=== PATIENT | female | born 1965 | race Caucasian/White ===

== ENCOUNTER 2016-09-12 18:40 | Inpatient (IN) ==
[2016-09-12] MEDS ORDERED: ETOMIDATE 20 MG/10 ML VIAL IV ONE (19:08)
[2016-09-12] MEDS ORDERED: VECURONIUM 10 MG VIAL IV ONE ×2 (19:08→21:12)
[2016-09-12] MEDS ORDERED: THIAMINE INJ 100 MG, FOLIC ACID INJ 1 MG, MAGNESIUM SULF INJ 2 GM, MULTIVITAMIN INJ 10 ... IV ONE (19:10)
[2016-09-12] MEDS ORDERED: SODIUM CHLORIDE 0.9% 500 ML IV STA (19:10)
[2016-09-12] MEDS ORDERED: FUROSEMIDE 40 MG/4 ML VIAL IV STA (19:14)
[2016-09-12] MEDS ORDERED: CLINDAMYCIN INJ 900 MG in PREMIX 1 EACH IV STA (19:14)
[2016-09-12] MEDS ORDERED: methylPREDNISolone SOD SUC 125 MG/2 ML VIAL IV STA (19:14)
[2016-09-12] MEDS ORDERED: PROPOFOL 1,000 MG/100 ML BOTTLE IV ONE (19:17)
--- NOTE | 2016-09-12 19:26 | XRay Report ---
XR chest 1V portable Indication: Altered mental status Comparison: None Technique: Single frontal view of the chest Findings: Heart size appears within normal limits. Endotracheal tube tip noted approximately 3 cm above the laure. No focal consolidation, pleural effusion, or pneumothorax. Displaced left mid/distal clavicular fracture. IMPRESSION: As above. PROCEDURE INTERPRETED AT [facility] DEPARTMENT OF RADIOLOGY Final Report Signed by: Dr Donal Strange
[2016-09-12 19:27] LABS: ABG Base Excess -2.6 MMOL/L (-2.5-2.5); ABG Oxygen Saturation 96.9 % (95-100); ABG PCO2 48.4 MM HG (35-48); ABG PH 7.313 (7.35-7.45); ABG PO2 106.7 MM HG (80-95); ABG TCO2 25.5 MMOL/L (23-27)
[2016-09-12 19:45] LABS: Basophils % 0.5 % (0.0-0.8); Eosinophils % 0.1 % (0.00-10.9); Hematocrit 40.7 VOL% (35.7-47.0); Hemoglobin 13.8 GM/DL (12.0-16.0); Immature Granulocytes % 1.3 %; Immature Granulocytes Absolute 0.11 #; Lymphocytes # 0.7 10*3/uL (1.4-4.0); Lymphocytes % 8.4 % (21.3-54.2); Mean Corpuscular HGB Conc 33.9 GM/DL (32-36); Mean Corpuscular Hemoglobin 33 PG (27-34); Mean Corpuscular Volume 97.8 FL (87-102); Monocytes # 0.3 10*3/uL (0.11-0.8); Monocytes % 3.6 % (1.7-12.7); Neutrophils # 7.6 10*3/uL (1.4-7.4); Neutrophils % 86.1 % (38.7-73.9); Platelet Count 162 T/CUMM (130-400); Red Blood Count 4.16 MC/CUMM (3.8-5.5); Red Cell Distribution Width 12.8 % (9.3-17.3); White Blood Count 8.8 T/CUMM (4-12)
[2016-09-12 19:49] LABS: Apearance,Urine Slightly Hazy (Clear); Bilirubin,Urine Negative (Negative); Blood, Urine Negative (Negative); Glucose,Urine (UA) Negative (Negative); Ketones,Urine Negative (Negative); Nitrite,Urine Negative (Negative); Protein,Urine Negative; RBC,Urine 1 /HPF (0-4); Squamous Epithelial Cell,Urine Occasional /HPF (0-10); Urine Color Yellow (Yellow); Urine Specific Gravity 1.005 (1.001-1.035); Urine Urobilinogen < 2.0 EU/DL (0.2-1.0); WBC,Urine 1 /HPF (0-6)
[2016-09-12 19:55] LABS: PT Patient Result 10.3 SECS
--- NOTE | 2016-09-12 19:55 | CT Report ---
CT head/brain wo con Indication: Mental status changes Comparison: None Technique: Multiple axial tomographic images of the brain were obtained without the use of intravenous contrast. Findings: Midline structures are nondisplaced. There is no acute intracranial hemorrhage or evidence of hydrocephalus. Mild to moderate global volume loss present. Periventricular and subcortical hypoattenuation noted which is nonspecific but consistent with chronic microvascular ischemic change. Paranasal sinuses and mastoid air cells are clear. IMPRESSION: No acute intracranial abnormality demonstrated. Probable chronic microvascular ischemic change and volume loss. PROCEDURE INTERPRETED AT [facility] DEPARTMENT OF RADIOLOGY Final Report Signed by: Dr Donal Strange
[2016-09-12 19:59] LABS: Barbiturates Screen,Urine Negative (Negative); Benzodiazepines Screen,Urine Negative (Negative); Cannabinoid Screen,Urine Negative (Negative); Opiate Screen,Urine Negative (Negative); Phencyclidine Screen,Urine Negative (Negative)
[2016-09-12 20:11] LABS: Alanine Aminotransferase 30 U/L (13-56); Albumin 3.8 G/DL (3.4-5.0); Alkaline Phosphatase 81 U/L (45-117); Aspartate Amino Transferase 40 U/L (0-37); Bilirubin,Total < 0.39 MG/DL (0.2-1.0); Blood Urea Nitrogen 9 MG/DL (7-18); Calcium 8.2 MG/DL (8.5-10.1); Glucose 123 MG/DL (74-106); Osmolality,Calculated 285.8 MOS/KG (273-304); Potassium 2.8 MMOL/L (3.5-5.1); Sodium 144 MMOL/L (136-145); Total Protein 6.5 G/DL (6.4-8.3); Troponin I Only < 0.015 NG/ML (0.00-0.045)
[2016-09-12 20:14] LABS: Ammonia 35 UMOL/L (11-32)
[2016-09-12] MEDS ORDERED: FUROSEMIDE 40 MG/4 ML VIAL ONE (20:26)
[2016-09-12] MEDS ORDERED: CLINDAMYCIN INJ 50 ML IV ONE (20:26)
[2016-09-12] MEDS ORDERED: methylPREDNISolone SOD SUC 125 MG/2 ML VIAL ONE (20:27)
[2016-09-12] MEDS ORDERED: POTASSIUM CHLORIDE RIDER 20 MEQ in PREMIX 1 EACH IV STA (20:31)
[2016-09-12 20:47] LABS: Sedimentation Rate-Westergren 8 MM/HR (0-20)
--- NOTE | 2016-09-12 20:56 | Emergency Department Note ---
Yosef Navarro Brittany, am scribing for, and in the presence of, Amol Torres MD 19:23. Brian Navarro Charles R, MD, personally performed the services described in this documentation, ascribed by Ashwini Navas in my presence, and it is both accurate and complete 056 . Arrival - Arrival Chief Complaint: Overdose Stated Complaint: overdose ED Nursing Triage Note: Patient arrived via ems with unresponsiveness. Patient on NRB at 100%. O2 sats = 88%. Arousable to verbal stimuli. Lethargy noted.unresponsive prior to arrival. last known well time was at noon. suspected overdose on benadryl and vodka.Patient with known ETOH abuse. Mode of Arrival: Stretcher Limitations: No Limitations, Altered Mental Status Source: Family, RN Notes Reviewed - History of Present Illness HPI Narrative: Patient is a 51 y/o white female presenting to the ED by EMS for further evaluation of overdose. Patient's family reports that she and other family attempted to arouse patient to answer a phone call, but could not get a response from her. She then states she attempted a sternal rub on patient, with no response either. She then notes that upon removing the covers she found a bottle of Smirnoff vodka lying beside the patient that was almost empty with some pink infused residue in the bottle. She reports that patient has been taking some Benadryl as of current for her allergies and believes that patient may have infused an unknown amount of the Benadryl with the vodka. She notes that patient's last known well time was around noon today. Family is unsure if patient has had any suicidal ideations. Family reports that patient has a well known history of ETOH abuse, mentioning that patient in the past has been instructed to follow up about a suspicious area on her liver, but never did. EMS notes that en route to the ED, patient vomited what appeared to be pink colored emesis which is consistent with the color of Benadryl tablets. EMS notes that patient was given 0.8 and 1.2 of Narcan en route, with no response. EMS believes that patient may have aspirated. In room patient is unresponsive and has a GCS of 6. Patient was intubated, leading to an increase in sats. She also had an NG tube placed in room as well and there was about 150 mL of pink colored gastric contents consistent with intake of Benadryl and ETOH today. No further history obtained. Allergies/Adverse Reactions: Allergies Allergy/AdvReac Type Severity Reaction Status Date / Time Unable to Obtain Allergy Unverified 09/12/16 20:20 Review of System - Review of System ROS unobtainable: due to mental status Medical,Surgical,& Family Hx - Social History Smoking Status: Unknown if ever smoked Exam Vital Signs: Vital Signs Temperature 97.7 F 09/12/16 18:41 Pulse Rate 111 H 09/12/16 18:41 Respiratory Rate 25 H 09/12/16 18:41 Blood Pressure 123/100 09/12/16 18:41 O2 Sat by Pulse Oximetry 88 L 09/12/16 18:41 - General General appearance: obtunded (patient is unresponsive with a GCS of 6) - Head Head exam: Present: atraumatic, normocephalic, normal inspection - Eye Eye exam: Present: PERRL (4 mm pupils, sluggish response to light), EOMI. Absent: normal appearance (4 mm pupils) - ENT ENT exam: Present: normal exam, normal oropharynx - Neck Neck exam: Present: normal inspection - Chest Chest inspection: Present: normal inspection - Respiratory Respiratory exam: Absent: normal lung sounds bilaterally ("gunky" breath sounds bilaterally per ER Physician) - Cardiovascular Cardiovascular exam: Present: normal rhythm, tachycardia, normal heart sounds. Absent: regular rate - Abdominal Exam Abdominal exam: Present: soft, normal bowel sounds. Absent: distention - Extremities Exam Extremities exam: Present: normal inspection - Back Exam Back exam: Present: normal inspection - Neurological Exam Neurological exam: Absent: alert (patient is unresponsive with a GCS of 6), oriented X3 - Skin Skin exam: Present: warm, dry Course - Consultations Consultation #1: Hospitalist will admit patient Time: 20:55 Procedures - Intubation Time out performed: Yes sedative: Etomidate Mg Given: 20 paralytic: Vecuronium Mg Given: 10 Laryngoscope: fiber optic video scope Assist Device Used: fiber optic device ET Tube Size: 7.5 ET Tube Uncuffed: No Tube Secured Depth (cm): 21 (and a half) Tube Secured Location: lips Tube Placement Confirmation: visualized tube passing through cords, equal breath sounds bilaterally, confirmation detector color change Patient Tolerated Procedure: well, no complications Intubation Complications: none (successfully performed on the first attempt) Results - Labs CBC & BMP: 09/12/16 19:22 09/12/16 19:22 Lab Results: I have reviewed the patients labs Labs: Laboratory Tests 09/12/16 19:19 ABG pH 7.313 L ABG pCO2 48.4 H ABG pO2 106.7 H ABG HCO3 24.0 ABG Total CO2 25.5 ABG O2 Saturation 96.9 ABG Base Excess -2.6 L Laboratory Tests 09/12/16 09/12/16 09/12/16 19:22 19:22 19:22 WBC 8.8 RBC 4.16 Hgb 13.8 Hct 40.7 MCV 97.8 MCH 33 MCHC 33.9 RDW 12.8 Plt Count 162 MPV 10.0 Neut % (Auto) 86.1 H Lymph % (Auto) 8.4 L Harvey % (Auto) 3.6 Eos % (Auto) 0.1 Baso % (Auto) 0.5 Neut # (Auto) 7.6 H Lymph # (Auto) 0.7 L Harvey # (Auto) 0.3 Eos # (Auto) 0.0 Baso # (Auto) 0.0 Immature Gran % 1.3 Nucleated RBC % 0.0 Immature Gran # 0.11 Nucleated RBCs # 0.00 INR 1.0 PT Patient/Control Mix 10.3 Sodium Potassium Chloride Carbon Dioxide Anion Gap BUN Creatinine GFR Calculation BUN/Creatinine Ratio Glucose Calculated Osmolality Calcium Magnesium Total Bilirubin AST ALT Alkaline Phosphatase Ammonia Total Creatine Kinase CK-MB (CK-2) Troponin I B-Natriuretic Peptide Total Protein Albumin Globulin Albumin/Globulin Ratio Prolactin Urine Color Yellow Urine Appearance Slightly hazy Urine pH 6.0 Ur Specific Cavalier 1.005 Urine Protein Negative Urine Glucose (UA) Negative Urine Ketones Negative Urine Blood Negative Urine Nitrate Negative Urine Bilirubin Negative Urine Urobilinogen < 2.0 H Urine Leukocytes Negative Urine RBC 1 Urine WBC 1 Ur Squamous Epith Cells Occasional Urine Opiates Screen Acetaminophen Ur Barbiturates Screen Ur Phencyclidine Scrn U Amphetamine/Methamph U Benzodiazepines Scrn U Cocaine Metab Screen U Cannabinoids Screen Serum Alcohol 09/12/16 09/12/16 09/12/16 19:22 19:22 19:22 WBC RBC Hgb Hct MCV MCH MCHC RDW Plt Count MPV Neut % (Auto) Lymph % (Auto) Harvey % (Auto) Eos % (Auto) Baso % (Auto) Neut # (Auto) Lymph # (Auto) Harvey # (Auto) Eos # (Auto) Baso # (Auto) Immature Gran % Nucleated RBC % Immature Gran # Nucleated RBCs # INR PT Patient/Control Mix Sodium 144 Potassium 2.8 L Chloride 103 Carbon Dioxide 23 Anion Gap 20.8 H BUN 9 Creatinine 0.50 L GFR Calculation 101 BUN/Creatinine Ratio 18.00 Glucose 123 H Calculated Osmolality 285.8 Calcium 8.2 L Magnesium 2.0 Total Bilirubin < 0.39 AST 40 H ALT 30 Alkaline Phosphatase 81 Ammonia 35 H Total Creatine Kinase 80 CK-MB (CK-2) < 1.0 Troponin I < 0.015 B-Natriuretic Peptide Total Protein 6.5 Albumin 3.8 Globulin 2.7 Albumin/Globulin Ratio 1.4 Prolactin 5.7 Urine Color Urine Appearance Urine pH Ur Specific Cavalier Urine Protein Urine Glucose (UA) Urine Ketones Urine Blood Urine Nitrate Urine Bilirubin Urine Urobilinogen Urine Leukocytes Urine RBC Urine WBC Ur Squamous Epith Cells Urine Opiates Screen Acetaminophen < 2.0 L Ur Barbiturates Screen Ur Phencyclidine Scrn U Amphetamine/Methamph U Benzodiazepines Scrn U Cocaine Metab Screen U Cannabinoids Screen Serum Alcohol 188 09/12/16 09/12/16 19:22 19:23 WBC RBC Hgb Hct MCV MCH MCHC RDW Plt Count MPV Neut % (Auto) Lymph % (Auto) Harvey % (Auto) Eos % (Auto) Baso % (Auto) Neut # (Auto) Lymph # (Auto) Harvey # (Auto) Eos # (Auto) Baso # (Auto) Immature Gran % Nucleated RBC % Immature Gran # Nucleated RBCs # INR PT Patient/Control Mix Sodium Potassium Chloride Carbon Dioxide Anion Gap BUN Creatinine GFR Calculation BUN/Creatinine Ratio Glucose Calculated Osmolality Calcium Magnesium Total Bilirubin AST ALT Alkaline Phosphatase Ammonia Total Creatine Kinase CK-MB (CK-2) Troponin I B-Natriuretic Peptide 17 Total Protein Albumin Globulin Albumin/Globulin Ratio Prolactin Urine Color Urine Appearance Urine pH Ur Specific Cavalier Urine Protein Urine Glucose (UA) Urine Ketones Urine Blood Urine Nitrate Urine Bilirubin Urine Urobilinogen Urine Leukocytes Urine RBC Urine WBC Ur Squamous Epith Cells Urine Opiates Screen Negative Acetaminophen Ur Barbiturates Screen Negative Ur Phencyclidine Scrn Negative U Amphetamine/Methamph Negative U Benzodiazepines Scrn Negative U Cocaine Metab Screen Negative U Cannabinoids Screen Negative Serum Alcohol - Diagnostic Findings Procedure: Chest x-ray: report reviewed by me (Heart size appears within normal limits. Endotracheal tube tip noted approximately 3 cm above the laure. No focal consolidation, pleural effusion, or pneumothorax. Displaced left mid/ distal clavicular fracture.), CT: report reviewed by me (CT head: No acute intracranial abnormality is demonstrated. Probable chronic microvascular ischemic change and volume loss.) Critical Care Time Critical Care Time: Yes Total Critical Care Time: 60 Disposition Clinical Impression: Drug overdose, Acute respiratory failure, Acute alcohol intoxication Case discussed with: patient, patient's family Disposition: Still a Patient Condition: Guarded Time of Disposition: 20:56
[2016-09-12] MEDS ORDERED: POTASSIUM CHLORIDE RIDER IV SCH (21:00)
[2016-09-12] MEDS ORDERED: VECURONIUM 10 MG VIAL IV STA (21:26)
[2016-09-12] MEDS ORDERED: SODIUM CHLOR 0.9% KCL 20 MEQ 20 MEQ/1,000 ML BAG IV ONE (21:33)
--- NOTE | 2016-09-12 21:43 | Hospitalist History & Physical ---
Assessment and Plan - Time spent with patient Time spent with patient: Greater than 30 minutes (1) Drug overdose Status: Acute Assessment and plan: Patient is unable to provide any history. The history is taken from the emergency room physician and the account of the family members and EMS. The pink colored fluid is consistent with Benadryl and the bottle of alcohol and elevated alcohol level suggest alcohol intoxication. There is no history of prior suicidal behavior or attempts. Continue to monitor in the intensive care unit with ventilatory support and supportive care. Current Visit: Yes Qualifiers: Encounter type: initial encounter Injury intent: undetermined intent Qualified Code(s): T50.904A - Poisoning by unspecified drugs, medicaments and biological substances, undetermined, initial encounter (2) Acute respiratory failure Status: Acute Assessment and plan: Acute respiratory failure related to toxic ingestion and overdose of Benadryl with alcohol. Causing respiratory depression. GCS of 6. Current Visit: Yes Qualifiers: Respiratory failure complication: unspecified whether with hypoxia or hypercapnia Qualified Code(s): J96.00 - Acute respiratory failure, unspecified whether with hypoxia or hypercapnia (3) Acute alcoholic intoxication Status: Acute Assessment and plan: Patient with a history of chronic alcohol use. Alcohol level 188. Found to have ingested a large amount of alcohol and possibly Benadryl. Currently sedated with diprivan. Monitor for delirium tremens over the next 48-72 hours. Current Visit: Yes Qualifiers: Complication of substance-induced condition: with unspecified complication Qualified Code(s): F10.129 - Alcohol abuse with intoxication, unspecified (4) Hypokalemia Status: Acute Assessment and plan: Oral and IV replacement ordered. Current Visit: Yes History of Present Illness Chief complaint: unresponsive History of present illness: Ms. Evangelista is a 51 year old female that presented to the ED by EMS for further evaluation of overdose. Patient's family reports that she and other family attempted to arouse patient to answer a phone call, but could not get a response from her. She then states she attempted a sternal rub on patient, with no response either. Upon removing the covers, she found a bottle of Smirnoff vodka lying beside the patient that was almost empty with some pink infused residue in the bottle. She reports that patient has been taking some Benadryl as of current for her allergies and believes that patient may have infused an unknown amount of the Benadryl with the vodka. She notes that patient's last known well time was around noon today. Family is unsure if patient has had any suicidal ideation. Family reports that patient has a well known history of ETOH abuse, mentioning that patient in the past has been instructed to follow up about a suspicious area on her liver, but never did. EMS notes that en route to the ED, patient vomited what appeared to be pink colored emesis which is consistent with the color of Benadryl tablets. EMS notes that patient was given 0.8 and 1.2 of Narcan en route, with no response. EMS believes that patient may have aspirated. In room patient is unresponsive and has a GCS of 6. Patient was intubated, leading to an increase in sats. She also had an NG tube placed in room as well and there was about 150 mL of pink colored gastric contents consistent with intake of Benadryl and ETOH today. No further history obtained. I arrived in the emergency department -room 4 - to find the patient intubated and sedated and unable to provide any history. Allergies Allergy/AdvReac Type Severity Reaction Status Date / Time Unable to Obtain Allergy Unverified 09/12/16 20:20 Medical,Surgical,& Family Hx - Surgical History Additional Surgical History: unable to obtain due to intubation and sedation. - Family History Additional Family History: unobtainable due to intubation and sedation. - Social History Smoking Status: Unknown if ever smoked Frequency of Alcohol Use: Frequently Type of Drug Use: Unknown Marital Status: Unknown Functional capacity: independent ambulation ROS unobtainable: due to endotracheal tube, due to mental status, due to encephalopathy Exam - Constitutional Vitals: Heart rate 94 blood pressure 124/90 respirations 14 O2 sat 98% Temperature 97.9 Exam: Constitutional System: No distress. No tremulousness. Sedated with diprivan. Head: Normocephalic, atraumatic. Ears, Nose and Throat System: No pain or tenderness. No epistaxis or discharge. Endotracheal tube in place. Eyes System: Pupils equal, round, and reactive. Extraocular muscles intact. Neck: Supple, without adenopathy, No jugular venous distention. No thyromegaly, neck mass, or prior surgery apparent. Respiratory System: Chest clear to auscultation. Cardiovascular System: Heart with regular rate and rhythm. No murmur. GI System: Abdomen soft, nontender. Normo active bowel sounds present. Musculoskeletal System: limbs with no pedal edema. Full distal pulses. Neurological System: Unable to assess secondary to intubation and sedation. Psychiatric System: Unable to assess secondary to intubation and sedation. Results - Labs CBC & BMP: 09/12/16 19:22 09/12/16 19:22 Lab Results: I have reviewed the past 24 hour labs - EKG EKG results: sinus rhythm EKG shows: tachycardia - Diagnostic Findings Procedure: Chest x-ray: image reviewed by me, report reviewed by me, CT: image reviewed by me, report reviewed by me
[2016-09-12] MEDS: PROPOFOL 1,000 MG/100 ML BOTTLE IV SCH (21:47)
[2016-09-12] MEDS ORDERED: SODIUM CHLOR 0.9% KCL 20 MEQ 20 MEQ/1,000 ML BAG IV SCH (22:00)
[2016-09-12] MEDS: SODIUM CHLORIDE 0.9% 1,000 ML IV SCH (23:09)
[2016-09-12] MEDS: POTASSIUM CHLORIDE RIDER 10 MEQ in PREMIX 1 EACH IV SCH ×2 (23:39→23:42)
[2016-09-12] MEDS: ENOXAPARIN 40 MG/0.4 ML SYRINGE SUBCUT SCH (23:39)
[2016-09-12] MEDS: PANTOPRAZOLE 40 MG VIAL IV SCH (23:43)
[2016-09-13] MEDS: PROPOFOL 1,000 MG/100 ML BOTTLE IV SCH ×7 (00:47→23:50)
[2016-09-13 03:19] LABS: ABG Base Excess -4.5 MMOL/L (-2.5-2.5); ABG HCO3 20.7 MMOL/L (20-26); ABG Oxygen Saturation 99.5 % (95-100); ABG PCO2 33.9 MM HG (35-48); ABG PH 7.376 (7.35-7.45); ABG TCO2 17.6 MMOL/L (23-27); Allen Test Positive; Pt O2 Delivery Device Ventilator
[2016-09-13 05:54] LABS: Basophils % 0.1 % (0.0-0.8); Hematocrit 40.3 VOL% (35.7-47.0); Hemoglobin 13.1 GM/DL (12.0-16.0); Immature Granulocytes % 0.8 %; Immature Granulocytes Absolute 0.12 #; Lymphocytes # 0.8 10*3/uL (1.4-4.0); Lymphocytes % 5.2 % (21.3-54.2); Mean Corpuscular HGB Conc 32.5 GM/DL (32-36); Mean Corpuscular Hemoglobin 33 PG (27-34); Mean Corpuscular Volume 102.3 FL (87-102); Mean Platelet Volume 10.1 FL (9.6-12.0); Monocytes # 0.9 10*3/uL (0.11-0.8); Monocytes % 6.5 % (1.7-12.7); Neutrophils # 12.6 10*3/uL (1.4-7.4); Neutrophils % 87.4 % (38.7-73.9); Platelet Count 150 T/CUMM (130-400); Red Blood Count 3.94 MC/CUMM (3.8-5.5); Red Cell Distribution Width 12.9 % (9.3-17.3); White Blood Count 14.4 T/CUMM (4-12)
[2016-09-13 06:26] LABS: Magnesium 1.9 MG/DL (1.8-2.4)
[2016-09-13] MEDS: SODIUM CHLORIDE 0.9% 1,000 ML IV SCH (06:40)
--- NOTE | 2016-09-13 06:42 | XRay Report ---
Portable chest Date: 09/13/2016 Clinical history: Intubation Comparison: 09/12/2016 Technique: Portable AP sitting chest Findings: The heart remains normal in size. The endotracheal tube is stable in position at the level of the clavicles. Progressive parenchymal findings at the left lung base with small left pleural effusion. Stable mediastinum. Displaced mid left clavicular fracture. Impression: Progressive atelectasis/infiltration at left lung base with small left pleural effusion. No definite pneumothorax is identified with displaced midclavicular fracture. The endotracheal tube remains in satisfactory position. PROCEDURE INTERPRETED AT [facility] DEPARTMENT OF RADIOLOGY Final Report Signed by: Dr. Ashli Gardiner
[2016-09-13 07:44] LABS: Alanine Aminotransferase 22 U/L (13-56); Albumin 3.2 G/DL (3.4-5.0); Alkaline Phosphatase 62 U/L (45-117); Aspartate Amino Transferase 29 U/L (0-37); Bilirubin,Total < 0.39 MG/DL (0.2-1.0); Blood Urea Nitrogen 7 MG/DL (7-18); Calcium 7.1 MG/DL (8.5-10.1); Glucose 127 MG/DL (74-106); Osmolality,Calculated 293.3 MOS/KG (273-304); Potassium 2.9 MMOL/L (3.5-5.1); Sodium 148 MMOL/L (136-145); Total Protein 5.4 G/DL (6.4-8.3)
--- NOTE | 2016-09-13 08:21 | EKG Report ---
Stationary ECG Study [facility] Test Date: 09/12/2016 11:28:27 PM Pat Name: BRODERICK LLOYD Department: Room: 119 Gender: F Purchasing Supervisor: MERVAT : 1965 Requested by: Amol Hawkins Order Number: [id number] Reading MD: SUSAN ESPINOSA Intervals [place] Rate: 91 P: 76 AK: 134 QRS: 58 QRSD: 85 T: 69 QT: 332 QTc: 380 Interpretive Statements SINUS RHYTHM ANTEROSEPTAL MYOCARDIAL INFARCTION, OF INDETERMINATE AGE Electronically Signed On 09-14-16 20:41:29 CDT by SUSAN ESPINOSA [email or web address]
[2016-09-13] MEDS ORDERED: THIAMINE 100 MG TABLET PO SCH (09:00)
[2016-09-13] MEDS ORDERED: FOLIC ACID 1 MG TABLET PO SCH (09:00)
[2016-09-13] MEDS ORDERED: MULTIVITAMIN LIQUID (CENTRUM) 60 ML BOTTLE PO SCH (09:00)
--- NOTE | 2016-09-13 09:07 | Hospitalist Progress Note ---
Assessment and Plan (1) Drug overdose Status: Acute Assessment and plan: Patient is unable to provide any history. The history is taken from the emergency room physician and the account of the family members and EMS. The pink colored fluid is consistent with Benadryl and the bottle of alcohol and elevated alcohol level suggest alcohol intoxication. There is no history of prior suicidal behavior or attempts. UDs was negative -continue respiratory support -Pulm to assist with weaning parameters. Current Visit: Yes Qualifiers: Encounter type: initial encounter Injury intent: undetermined intent Qualified Code(s): T50.904A - Poisoning by unspecified drugs, medicaments and biological substances, undetermined, initial encounter (2) Acute respiratory failure Status: Acute Assessment and plan: Acute respiratory failure related to toxic ingestion and overdose of Benadryl with alcohol. Causing respiratory depression. CXR also showed progressive atelectasis/ infiltration at left lung base with small left pleural effusion. Plan -IV Zosyn -SC,BC -Pulm consult Current Visit: Yes Qualifiers: Respiratory failure complication: unspecified whether with hypoxia or hypercapnia Qualified Code(s): J96.00 - Acute respiratory failure, unspecified whether with hypoxia or hypercapnia (3) Acute alcoholic intoxication Status: Acute Assessment and plan: Patient is on sedation. Will start banana bag,continue with PPIs. Consider Rehab vs psych eval once patient is extubated Current Visit: Yes Qualifiers: Complication of substance-induced condition: with unspecified complication Qualified Code(s): F10.129 - Alcohol abuse with intoxication, unspecified (4) Hypokalemia Status: Acute Assessment and plan: we will continue to replete, bmp in am Current Visit: Yes (5) Pneumonia Status: Acute Assessment and plan: CXR showed progressive atelectasis/ infiltration at left lung base with small left pleural effusion. Plan -will start IV Zosyn, follow cultures. Current Visit: Yes Hospitalist: Subjective Interval history: Patient was seen this am, sedated and intubated. Her CXR showed progressive atelectasis/ infiltration at left lung base with small left pleural effusion. Exam - Constitutional Vitals: Period Temp Pulse Resp BP Sys/Briones Pulse Ox Last 24 Hr 97.2 F-97.4 F 81-97 12-19 85-194/65-127 97-100 General appearance: no acute distress, other (intubated and sedated) - Respiratory Respiratory exam: Present: clear to auscultation bilaterally - Cardiovascular Cardiovascular exam: Present: regular rate and rhythm - GI/Abdominal GI/Abdominal exam: Present: normal bowel sounds - Extremities Exam Extremities exam: Present: normal inspection - Back Exam Back exam: Present: other (sedated) Results - Labs CBC & BMP: 09/13/16 05:09 09/13/16 06:48 Lab Results: I have reviewed the past 24 hour labs Quality Measures - Stroke Symptom Onset Unknown: No
[2016-09-13] MEDS ORDERED: THIAMINE INJ 100 MG, FOLIC ACID INJ 1 MG, MULTIVITAMIN INJ 10 ML in SODIUM CHLORIDE 0.9... IV SCH (09:30)
[2016-09-13] MEDS: PIPERACILLIN/TAZOBACTAM 3,375 MG in SODIUM CHLORIDE 0.9% 100 ML IV SCH ×2 (09:30→18:07)
[2016-09-13] MEDS ORDERED: SODIUM CHLOR 0.9% KCL 20 MEQ 20 MEQ/1,000 ML BAG IV SCH (09:30)
[2016-09-13] MEDS ORDERED: LEVOFLOXACIN INJ 750 MG in PREMIX 1 EACH IV SCH (09:30)
[2016-09-13] MEDS: PANTOPRAZOLE 40 MG VIAL IV SCH ×2 (21:30→21:59)
[2016-09-13] MEDS: ENOXAPARIN 40 MG/0.4 ML SYRINGE SUBCUT SCH (21:59)
[2016-09-14] MEDS: PIPERACILLIN/TAZOBACTAM 3,375 MG in SODIUM CHLORIDE 0.9% 100 ML IV SCH ×3 (02:30→17:49)
[2016-09-14] MEDS: PROPOFOL 1,000 MG/100 ML BOTTLE IV SCH ×6 (03:50→23:15)
[2016-09-14 05:36] LABS: Calcium 7.8 MG/DL (8.5-10.1); Osmolality,Calculated 291.3 MOS/KG (273-304); Potassium 4.4 MMOL/L (3.5-5.1)
[2016-09-14 06:31] LABS: Basophils % 0.4 % (0.0-0.8); Eosinophils # 0.1 10*3/uL (0.0-0.87); Hematocrit 30.6 VOL% (35.7-47.0); Immature Granulocytes % 0.7 %; Immature Granulocytes Absolute 0.05 #; Lymphocytes # 1.4 10*3/uL (1.4-4.0); Lymphocytes % 20.8 % (21.3-54.2); Mean Corpuscular Hemoglobin 34 PG (27-34); Mean Corpuscular Volume 101.7 FL (87-102); Mean Platelet Volume 10.2 FL (9.6-12.0); Monocytes # 0.8 10*3/uL (0.11-0.8); Monocytes % 11.4 % (1.7-12.7); Neutrophils # 4.5 10*3/uL (1.4-7.4); Neutrophils % 65.7 % (38.7-73.9); Platelet Count 137 T/CUMM (130-400); Red Cell Distribution Width 13.3 % (9.3-17.3)
[2016-09-14 06:34] LABS: White Blood Count 6.9 T/CUMM (4-12)
[2016-09-14 06:35] LABS: Hemoglobin 10.1 GM/DL (12.0-16.0); Red Blood Count 3.01 MC/CUMM (3.8-5.5)
[2016-09-14 08:14] LABS: Allen Test Positive; Pt O2 Delivery Device Ventilator
[2016-09-14 08:15] LABS: ABG HCO3 23.6 MMOL/L (20-26); ABG Oxygen Saturation 99.7 % (95-100); ABG PCO2 32.1 MM HG (35-48); ABG PH 7.449 (7.35-7.45); ABG TCO2 19.9 MMOL/L (23-27)
--- NOTE | 2016-09-14 08:33 | Hospitalist Progress Note ---
Assessment and Plan (1) Drug overdose Status: Acute Assessment and plan: Patient is unable to provide any history. The history is taken from the emergency room physician and the account of the family members and EMS. The pink colored fluid is consistent with Benadryl and the bottle of alcohol and elevated alcohol level suggest alcohol intoxication. There is no history of prior suicidal behavior or attempts. UDs was negative Plan -Continue vent support, ABGs -will repeat a CXR -Pulm consult -consider feeding via NG tube Current Visit: Yes Qualifiers: Encounter type: initial encounter Injury intent: undetermined intent Qualified Code(s): T50.904A - Poisoning by unspecified drugs, medicaments and biological substances, undetermined, initial encounter (2) Acute respiratory failure Status: Acute Assessment and plan: Acute respiratory failure related to toxic ingestion and overdose of Benadryl with alcohol. Causing respiratory depression. CXR also showed progressive atelectasis/ infiltration at left lung base with small left pleural effusion. Patient is sating 99% on Fio2 of 50% Plan -continue IV Zosyn and vent support -BC - negative so far -repeat CXR -Follow Pulm consult -IV lasix 40mg x1 Current Visit: Yes Qualifiers: Respiratory failure complication: unspecified whether with hypoxia or hypercapnia Qualified Code(s): J96.00 - Acute respiratory failure, unspecified whether with hypoxia or hypercapnia (3) Acute alcoholic intoxication Status: Acute Assessment and plan: Patient is on sedation. Will continue with banana bag, PPIs. Consider Rehab vs psych eval once patient is extubated Current Visit: Yes Qualifiers: Complication of substance-induced condition: with unspecified complication Qualified Code(s): F10.129 - Alcohol abuse with intoxication, unspecified (4) Hypokalemia Status: Acute Assessment and plan: repleted, dc supplements Current Visit: Yes (5) Pneumonia Status: Acute Assessment and plan: CXR showed progressive atelectasis/ infiltration at left lung base with small left pleural effusion. Plan -will continue IV Zosyn, BC-negative so far -IV Lasix x1 Current Visit: Yes (6) Hypernatremia Status: Acute Assessment and plan: will change IVF and follow response, bmp in am Current Visit: Yes (7) HTN (hypertension) Status: Acute Assessment and plan: will start Lisinopril 2.5mg bid, follow response Current Visit: Yes Hospitalist: Subjective Interval history: Patient seen, still sedated and intubated.Her H&H has dropped with no clinical evidence of an acute bleed. Her blood pressure is creeping up, mostly when she is agitated. Exam - Constitutional Vitals: Period Temp Pulse Resp BP Sys/Briones Pulse Ox Last 24 Hr 96.9 F-98.4 F 59-82 12-20 113-152/78-106 98-100 General appearance: no acute distress, other (sedated and intubated) - Head Head exam: Present: normal inspection - Respiratory Respiratory exam: Present: clear to auscultation bilaterally - Cardiovascular Cardiovascular exam: Present: regular rate and rhythm - GI/Abdominal GI/Abdominal exam: Present: normal bowel sounds - Extremities Exam Extremities exam: Present: normal inspection - Neurological Exam Neurological exam: Present: other (sedated and intubated) Results - Labs CBC & BMP: 09/14/16 06:17 09/14/16 04:19 Lab Results: I have reviewed the past 24 hour labs Quality Measures - Stroke Symptom Onset Unknown: No
--- NOTE | 2016-09-14 08:34 | XRay Report ---
Portable chest Date: 09/14/2016 Clinical history: Respiratory failure Comparison: 09/13/2016 Technique: Portable AP sitting chest Findings: The heart is normal in size with stable support devices. Decreased pleural and parenchymal findings at the left lung base with progressive parenchymal findings at the right lung base. Stable mediastinum and osseous structures. Displaced left clavicular fracture. Impression: The support devices remain in satisfactory position. Reduced pleural-parenchymal disease at the left lung base with progressive atelectasis/infiltration at the right lung base. Displaced left midclavicular fracture. PROCEDURE INTERPRETED AT [facility] DEPARTMENT OF RADIOLOGY Final Report Signed by: Dr. Ashli Gardiner
[2016-09-14] MEDS ORDERED: FUROSEMIDE 40 MG/4 ML VIAL IV ONE (08:38)
[2016-09-14] MEDS ORDERED: THIAMINE INJ 100 MG, FOLIC ACID INJ 1 MG, MULTIVITAMIN INJ 10 ML in DEXTROSE 5% NACL 0.... IV SCH (09:00)
[2016-09-14] MEDS: LISINOPRIL 2.5 MG TABLET PO SCH ×2 (09:29→20:53)
--- NOTE | 2016-09-14 09:56 | Event Note ---
In hospital diagnostic and therapeutic bronchoscopy with bilateral lavage for Gram stain, bacterial cultures, fungal stains and culture. This is a 51-year-old white female patient who was found unresponsive. She had taken Benadryl with slime. There was a history of alcohol abuse on her part and also a past history of a liver lesion that she never followed up with with her doctor. On it way to the hospital she vomited. She eventually required intubation mechanical ventilation. Admit chest x-ray showed early right lower lung infiltrate and follow-up chest x-ray has shown bibasilar infiltrates with some associated atelectasis. For these reasons this patient is evaluated with fiberoptic bronchoscopy. She is on mechanical ventilation. The endotracheal tube is in good position. The distal trachea was normal. The laure was sharp. Right mainstem bronchus was eroded and friable this extended into the right lower lung where there was erosion and friability and some mild endobronchial edema. There was a good bit of retained pulmonary secretions and these were pink tinged which was the color of her vomitus when she vomited. This was thought to be secondary to Benadryl. There were no endobronchial lesions to suggest cancer. Right lower lung was lavaged until clear. The left mainstem bronchus was erythematous edematous and friable when touched. This extended into the lingula of the left upper lung and into the left lower lung subsegments. The lingula in the left lower lung subsegments were lavaged until clear. There were no endobronchial lesions to suggest cancer and I saw no food particles on either side. The patient tolerated procedure well. There were no complications. Follow-up chest x-ray is pending. Staff obtain permission for the bronchoscopy from family member. Impression. 1. Respiratory failure requiring intubation mechanical ventilation 2. Aspiration of gastric contents. 3. Consider the possibility of bacterial superinfection. Plan. 1. Specimens were sent as noted above 2. Check bronchoscopy specimens 3. Follow-up chest x-ray 4. See orders
--- NOTE | 2016-09-14 10:19 | Pulmonology Consult Note ---
History of Present Illness Chief complaint: Ventilator. Aspiration. History of present illness: Ms. Evangelista is a 51 year old white female who is admitted to the hospital late on the night of 09/12/2016. I been asked to see her in pulmonary consultation for evaluation and treatment. Consult was ordered 09/13/2016 but was not entered into the order system. The order was placed in the system this morning per This patient became hard to arouse before she came to the hospital. The family did sternal rubs and other things to try to wake her up but could not. They said that they found a bottle of vodka lying beside the patient. This was almost completely empty. There was some pink confused residue bilateral which was thought to be Benadryl. She was said to have been taken Benadryl because of allergies. There was a history of ethanol abuse. Patient did not respond to Narcan in route. She did vomit and it was thought that she aspirated. The patient is sedated. No family is present. All of the review of systems other than mentioned above is negative based on review of the patient's chart. Allergies. Unable to obtain. Home medicines. See below. Present medicines. See below Past history. Alcohol abuse. High blood pressure. Probable history of depression and/or anxiety based on the fact the patient takes trazodone 100 mg at bedtime. Social history alcoholic Family history. Unknown Chest x-ray. Early bibasilar infiltrates with mild atelectasis. No evidence of heart failure. No chest mass seen. This is a portable semiupright film. Lab admit potassium was 2.8. This is been corrected. Sodium is 148. Chloride is 115. Creatinine is 0.5 with a BUN of 9. H&H 11.1/30.6 with normal indices and normal red blood cell distribution with platelets are 137,000 with a normal MPV. White count 6900 with 66 segs 21 lymphs and 11 monos. Liver function tests are normal. Calcium is low at 7.8. Albumin is low at 3.2. Total protein is low at 5.4. Globulin is low at 2.2. Urine shows no infection. Drug screen is positive for alcohol. Prolactin level is probably normal at 5.7. Nitrated peptide is 17. Troponins are negative. Admit ammonia level was 35 and is dropped to 16 Physical exam. Vital signs. See below Chest mild large airway congestion. Heart. No gallop Abdomen. Rare bowel sounds. Lower extremities. Nothing to suggest deep venous thrombophlebitis. Face. Symmetrical. Lips and tongue appear to be normal. Neck. Symmetrical. No meningismus. Lymphatics. No submandibular cervical or supraclavicular adenopathy. Neurologic. Patient moves all fours. Skin of the face hands and feet showed no infectious or cancerous lesions. No other areas of skin were examined. The remainder the physical exam is negative. Impression. 1. Altered mental status thought to be secondary to alcohol and Benadryl 2. History of alcohol abuse 3. History of high blood pressure 4. Hypokalemia of undetermined etiology 5. Acute aspiration 6. Acute respiratory failure requiring intubation mechanical ventilation 7. See past history 8. Hypokalemia. Etiology undetermined. Plan. 1. After examining the patient, her x-rays and her lab I elected to do fiberoptic bronchoscopy earlier this morning. Patient had bilateral aspiration injuries involving both mainstem bronchi, lingula, left lower lung and right lower lung. See report for details. 2. Started the patient on weaning protocol. She has been here less than 48 hours 3. Started patient on physical therapy protocol. She has been here less than 48 hours. 4. Deep venous thrombophlebitis prevention protocol. 5. Proton pump inhibitor protocol. 6. I agree with present antibiotic coverage. 7. Daily chest x-ray, ABGs, lab. 8. See orders Home Medications Medication Instructions Recorded Confirmed Type Amlodipine Besylate 5 mg PO DAILY 09/13/16 09/13/16 History Mirtazapine 15 mg PO BEDTIME 09/13/16 09/13/16 History Sulfamethoxazole/Trimethoprim 1 tablet PO BID 09/13/16 09/13/16 History [Sulfamethox/Trimethoprim 800-160 Tab] traZODone [Desyrel] 100 mg PO BEDTIME 09/13/16 09/13/16 History Allergies Allergy/AdvReac Type Severity Reaction Status Date / Time Unable to Obtain Allergy Unverified 09/12/16 20:20 Exam (Pulmonay) H&P - Constitutional Vitals: Period Temp Pulse Resp BP Sys/Briones Pulse Ox Last 24 Hr 96.9 F-98.4 F 59-82 12-24 113-152/78-106 98-100 Medical,Surgical,& Family Hx - Medical History Cardio: Comment Only: Cardiovascular Problems (unknown- pt on vent; no family present ) Psychological: Comment Only: Anxiety Disorders (unknown- pt on vent; no family present), ADHD (unknown- pt on vent; no family present), Behavior Problems (unknown- pt on vent; no family present), Bipolar Disorder (unknown- pt on vent; no family present), Depression (unknown- pt on vent; no family present), Previous Suicide Attempt (unknown- pt on vent; no family present), Psychiatric/Substance Abuse Tx (unknown- pt on vent; no family present), Schizophrenia (unknown- pt on vent ; no family present), Violent Behavior (unknown- pt on vent; no family present) , Psychiatric Problems (unknown- pt on vent; no family present) HEENT: Comment Only: HEENT Problems (unknown- pt on vent; no family present) Endocrine: Comment Only: Endocrine Problems (unknown- pt on vent; no family present) Respiratory: Comment Only: Respiratory Problems (unknown- pt on vent; no family present) Renal: Comment Only: Renal Problems (unknown- pt on vent; no family present) Gastrointestinal: Comment Only: GI Problems (unknown- pt on vent; no family present) Musculoskeletal: Comment Only: Musculoskeletal Problems (unknown- pt on vent; no family present) Hematology: Comment Only: Bleeding Problems (unknown- pt on vent; no family present) Reproductive: Comment Only: Reproductive Problems (unknown- pt on vent; no family present) Other: Comment Only: Miscellaneous Medical Problems (unknown- pt on vent; no family present) - Surgical History Cardiac Surgeries: Comment Only: Cardiac Surgery (unknown- pt on vent; no family present) Thoracic Surgeries: Comment Only: Lobectomy (unknown- pt on vent; no family present) HEENT Surgeries: Comment Only: Eye Surgery (unknown- pt on vent; no family present), Tonsilectomy & Adenoidectomy (unknown- pt on vent; no family present) Abdominal Surgeries: Comment Only: Abdominal Surgery (unknown- pt on vent; no family present) Reproductive Surgeries: Comment Only: Genitourinary Surgery (unknown- pt on vent; no family present) , Gynecologic Surgery (unknown- pt on vent; no family present) - Social History Smoking Status: Unknown if ever smoked Frequency of Alcohol Use: Unknown Type of Drug Use: Unknown Results - Labs CBC & BMP: 09/14/16 06:17 09/14/16 04:19 Quality Measures - Stroke Symptom Onset Unknown: No
[2016-09-14] MEDS: MIDAZOLAM 100 MG in SODIUM CHLORIDE 0.9% 80 ML IV SCH (19:58)
[2016-09-14] MEDS ORDERED: ACETAMINOPHEN 650 MG SUPP RECTAL PRN (20:05)
[2016-09-14] MEDS: ENOXAPARIN 40 MG/0.4 ML SYRINGE SUBCUT SCH (20:54)
[2016-09-15] MEDS: PROPOFOL 1,000 MG/100 ML BOTTLE IV SCH ×5 (00:27→23:41)
[2016-09-15] MEDS: PIPERACILLIN/TAZOBACTAM 3,375 MG in SODIUM CHLORIDE 0.9% 100 ML IV SCH ×3 (03:18→18:23)
[2016-09-15 03:48] LABS: Basophils % 0.4 % (0.0-0.8); Eosinophils # 0.1 10*3/uL (0.0-0.87); Eosinophils % 0.9 % (0.00-10.9); Hematocrit 31.7 VOL% (35.7-47.0); Hemoglobin 10.8 GM/DL (12.0-16.0); Immature Granulocytes % 0.8 %; Immature Granulocytes Absolute 0.07 #; Lymphocytes # 1.6 10*3/uL (1.4-4.0); Lymphocytes % 18.4 % (21.3-54.2); Mean Corpuscular HGB Conc 34.1 GM/DL (32-36); Mean Corpuscular Hemoglobin 33 PG (27-34); Mean Corpuscular Volume 97.5 FL (87-102); Mean Platelet Volume 10.5 FL (9.6-12.0); Monocytes # 0.7 10*3/uL (0.11-0.8); Monocytes % 7.9 % (1.7-12.7); Neutrophils # 6.4 10*3/uL (1.4-7.4); Neutrophils % 71.6 % (38.7-73.9); Platelet Count 222 T/CUMM (130-400); Red Blood Count 3.25 MC/CUMM (3.8-5.5); Red Cell Distribution Width 13.2 % (9.3-17.3); White Blood Count 8.9 T/CUMM (4-12)
[2016-09-15 03:55] LABS: ABG Base Excess 4.4 MMOL/L (-2.5-2.5); ABG HCO3 28.4 MMOL/L (20-26); ABG Oxygen Saturation 99.4 % (95-100); ABG PCO2 38.9 MM HG (35-48); ABG PH 7.469 (7.35-7.45); ABG TCO2 23.8 MMOL/L (23-27); Allen Test Positive; Pt O2 Delivery Device Ventilator
[2016-09-15 04:08] LABS: Calcium 8.1 MG/DL (8.5-10.1); Osmolality,Calculated 293.1 MOS/KG (273-304); Potassium 2.6 MMOL/L (3.5-5.1)
[2016-09-15] MEDS: POTASSIUM CHLORIDE RIDER 10 MEQ in PREMIX 1 EACH IV PRN ×9 (05:43→18:23)
--- NOTE | 2016-09-15 08:10 | XRay Report ---
Referring Physician: De Painter Exam: XR chest 1V portable Date: September 15, 2016 at 3:23 AM Reason: Ventilation Comparison: Chest one view portable September 14, 2016 Findings: The previously seen feeding tube is not identified. An endotracheal tube is again in place. The cardiac silhouette is normal in size. There are mild scattered opacities within both lungs, mainly on the left. This likely represents atelectasis, but there could also be mild pulmonary edema or pneumonia. No pneumothorax or definite pleural fluid is identified. The osseous structures appear stable with an indeterminate age fracture of the left clavicle. Impression: 1. The previously seen feeding tube is not identified. There are again mild scattered opacities within both lungs, which are slightly increased on the left. This likely represents atelectasis, but there could also be mild pulmonary edema or pneumonia. 2. Indeterminate age fracture of the mid left clavicle. PROCEDURE INTERPRETED AT [facility] DEPARTMENT OF RADIOLOGY Final Report Signed by: Dr. Naveed Genao
[2016-09-15] MEDS: LISINOPRIL 2.5 MG TABLET PO SCH (09:16)
[2016-09-15] MEDS: methylPREDNISolone SOD SUC 40 MG/1 ML VIAL IV SCH ×2 (09:17→20:39)
--- NOTE | 2016-09-15 09:29 | Pulmonology Progress Note ---
Pulmonary - PN: Subj Interval history: 51-year-old white female whom I saw in pulmonary consultation on 09/14/2016. My impressions were. 1. Altered mental status (unarousable) thought to be secondary to alcohol and Benadryl. CT of the head showed no acute findings. 2. History of alcohol abuse 3. History of high blood pressure 4. Hypokalemia of undetermined etiology 5. Acute aspiration. On 09/14/2016 the patient was evaluated with fiberoptic bronchoscopy. She had aspiration injury in both mainstem bronchi, the lingula, left lower lung and right lower lung. There were erosions and friability but no significant stenosis. Lavages were sent for bacterial and fungal studies. 6. Acute respiratory failure requiring intubation mechanical ventilation 7. See past history 8. Hypokalemia. Etiology undetermined. 09/15/2016. Bronchoscopy specimens are growing gram-negative rods and gram- positive cocci. The patient is on Zosyn. I have added Levaquin. She has no allergies listed. Potassium is 2.6. Patient is on replacement protocol. Creatinine is 0.5. White count is 8972 segs 18 lymphs and 8 monocytes. ABGs on mechanical ventilation and FiO2 of 50% shows a pH 7.47, PCO2 of 39, PO2 of 156, bicarb 28.4. Admit serum alcohol level was 188. Normal range is said to be less than 15. Patient's on weaning protocol and several other protocols that are mentioned in my plan. Overall she looks better today and her chest sounds better. Lab has been reviewed. Medicines have been reviewed Physical exam. Vital signs see below Neurologic. Patient moves all 4 cups. She requires sedation. She has a tendency not to be cooperative. She is on Versed at the present time and will have to watch for DTs. Neck. Symmetrical. No meningismus. Lymphatics. No submandibular cervical supraclavicular or epitrochlear adenopathy Chest. Large airway congestion. Prolonged expiration. Heart. No gallop Abdomen. Nondistended. Rare bowel sounds Extremities. Nothing to suggest deep venous thrombophlebitis. The remainder the physical exam is benign contributory Plan. 1. 09/14/2016 after examining the patient, her x-rays and her lab I elected to do fiberoptic bronchoscopy earlier this morning. Patient had bilateral aspiration injuries involving both mainstem bronchi, lingula, left lower lung and right lower lung. See report for details. 2. 09/14/2016 started the patient on weaning protocol. She has been here less than 48 hours 3. 09/14/2016. Started patient on physical therapy protocol. She has been here less than 48 hours. 4. 09/14/2016 deep venous thrombophlebitis prevention protocol. 5. 09/14/2016. Proton pump inhibitor protocol. 6. 09/15/2016. Have added Levaquin. Patient's also on Zosyn. Potassium replacement protocol. Daily chest x-ray, ABGs, lab. All protocols are in effect. 7. Daily chest x-ray, ABGs, lab. 8. See orders Exam (Progress Note) - Constitutional Vitals: Period Temp Pulse Resp BP Sys/Briones Pulse Ox Last 24 Hr 96.8 F-100.4 F 62-113 10-26 98-142/58-99 96-100 Results - Labs CBC & BMP: 09/15/16 02:59 09/15/16 02:59
[2016-09-15] MEDS: LEVOFLOXACIN INJ 500 MG in PREMIX 1 EACH IV SCH (09:35)
[2016-09-15] MEDS ORDERED: GLUCAGON 1 MG VIAL IM PRN (09:55)
[2016-09-15] MEDS ORDERED: DEXTROSE 50% 25 GM/50 ML VIAL IV PRN (09:55)
--- NOTE | 2016-09-15 10:28 | Hospitalist Progress Note ---
Assessment and Plan (1) Drug overdose Status: Acute Assessment and plan: Patient is unable to provide any history. The history is taken from the emergency room physician and the account of the family members and EMS. The pink colored fluid is consistent with Benadryl and the bottle of alcohol and elevated alcohol level suggest alcohol intoxication. There is no history of prior suicidal behavior or attempts. UDs was negative Plan -Continue vent support, and Pulm's recommendations -consider feeding via NG tube if not extubated today Current Visit: Yes Qualifiers: Encounter type: initial encounter Injury intent: undetermined intent Qualified Code(s): T50.904A - Poisoning by unspecified drugs, medicaments and biological substances, undetermined, initial encounter (2) Acute respiratory failure Status: Acute Assessment and plan: Acute respiratory failure related to toxic ingestion and overdose of Benadryl with alcohol. Causing respiratory depression. CXR also showed progressive atelectasis/ infiltration at left lung base with small left pleural effusion. Patient had a bronchoscopy yesterday and sputum grew gram negative rods and gram positive cocci Plan -continue IV Zosyn, Levaquin and vent support -BC - negative so far -Follow Pulm consult Current Visit: Yes Qualifiers: Respiratory failure complication: unspecified whether with hypoxia or hypercapnia Qualified Code(s): J96.00 - Acute respiratory failure, unspecified whether with hypoxia or hypercapnia (3) Acute alcoholic intoxication Status: Acute Assessment and plan: Patient is on sedation. Will continue with banana bag, PPIs. Consider Rehab vs psych eval once patient is extubated Current Visit: Yes Qualifiers: Complication of substance-induced condition: with unspecified complication Qualified Code(s): F10.129 - Alcohol abuse with intoxication, unspecified (4) Hypokalemia Status: Acute Assessment and plan: continue to replete per protocol, bmp in am Current Visit: Yes (5) Pneumonia Status: Acute Assessment and plan: CXR showed progressive atelectasis/ infiltration at left lung base with small left pleural effusion. She had a bronchoscopy yesterday and induced sputum grew gram negative rods and gram positive cocci. Plan -will continue IV Zosyn, Levaquin, BC-negative so far Current Visit: Yes (6) Hypernatremia Status: Acute Assessment and plan: will start free water,bmp in am Current Visit: Yes (7) HTN (hypertension) Status: Acute Assessment and plan: now borderline, will hold Prinivil for now Current Visit: Yes Hospitalist: Subjective Interval history: Patient seen and looked slightly better today.She is on CPAP trials. She was agitated and tremulous earlier on, so Versed was added to her Propofol. She had a bronchoscopy yesterday, her induced sputum grew gram negative rods and gram positive cocci.We will consider TF if she is not extubated today. Exam - Constitutional Vitals: Period Temp Pulse Resp BP Sys/Briones Pulse Ox Last 24 Hr 96.8 F-100.4 F 62-113 10-26 98-142/58-99 96-100 General appearance: no acute distress, other (intubated and sedated) - Respiratory Respiratory exam: Present: clear to auscultation bilaterally - Cardiovascular Cardiovascular exam: Present: regular rate and rhythm - GI/Abdominal GI/Abdominal exam: Present: normal bowel sounds - Extremities Exam Extremities exam: Present: normal inspection, other (UE looks slightly swollen) Results - Labs CBC & BMP: 09/15/16 02:59 09/15/16 02:59 Lab Results: I have reviewed the past 24 hour labs Quality Measures - Stroke Symptom Onset Unknown: No
[2016-09-15] MEDS: INSULIN REGULAR 100 UNIT/ML SUBCUT SCH ×2 (11:42→18:04)
[2016-09-15] MEDS: ENOXAPARIN 40 MG/0.4 ML SYRINGE SUBCUT SCH (20:39)
[2016-09-15] MEDS: PANTOPRAZOLE 40 MG VIAL IV SCH (20:39)
[2016-09-15] MEDS: MIDAZOLAM 100 MG in SODIUM CHLORIDE 0.9% 80 ML IV SCH (23:41)
[2016-09-16] MEDS: INSULIN REGULAR 100 UNIT/ML SUBCUT SCH ×4 (01:20→18:16)
[2016-09-16] MEDS: PIPERACILLIN/TAZOBACTAM 3,375 MG in SODIUM CHLORIDE 0.9% 100 ML IV SCH ×3 (01:20→18:15)
[2016-09-16 03:20] LABS: ABG Base Excess 1.7 MMOL/L (-2.5-2.5); ABG HCO3 25.9 MMOL/L (20-26); ABG Oxygen Saturation 99.7 % (95-100); ABG PCO2 31.1 MM HG (35-48); ABG PH 7.501 (7.35-7.45); ABG TCO2 21.8 MMOL/L (23-27); Allen Test Positive; Pt O2 Delivery Device Ventilator
[2016-09-16 05:11] LABS: Basophils % 0.2 % (0.0-0.8); Hematocrit 32.9 VOL% (35.7-47.0); Hemoglobin 10.7 GM/DL (12.0-16.0); Immature Granulocytes % 0.6 %; Immature Granulocytes Absolute 0.04 #; Lymphocytes % 16.1 % (21.3-54.2); Mean Corpuscular HGB Conc 32.5 GM/DL (32-36); Mean Corpuscular Hemoglobin 32 PG (27-34); Mean Corpuscular Volume 99.4 FL (87-102); Monocytes # 0.6 10*3/uL (0.11-0.8); Neutrophils # 4.6 10*3/uL (1.4-7.4); Neutrophils % 73.1 % (38.7-73.9); Platelet Count 270 T/CUMM (130-400); Red Blood Count 3.31 MC/CUMM (3.8-5.5); Red Cell Distribution Width 13.1 % (9.3-17.3); White Blood Count 6.3 T/CUMM (4-12)
[2016-09-16 05:59] LABS: Calcium 8.6 MG/DL (8.5-10.1); Osmolality,Calculated 294.1 MOS/KG (273-304); Potassium 3.5 MMOL/L (3.5-5.1)
[2016-09-16 06:04] LABS: Magnesium 1.9 MG/DL (1.8-2.4); Phosphorous 3.9 MG/DL (2.5-4.9); Prealbumin 12.8 MG/DL (20-40)
[2016-09-16] MEDS: PROPOFOL 1,000 MG/100 ML BOTTLE IV SCH (07:11)
--- NOTE | 2016-09-16 07:21 | XRay Report ---
Portable chest Date: 09/16/2016 Clinical history: Ventilator Comparison: 09/15/2016 Technique: Portable AP sitting chest Findings: The heart remains normal in size with endotracheal tube and nasogastric tube in satisfactory position. Persistent diffuse parenchymal findings especially on the left. Stable mediastinum with persistent displaced mid left clavicular fracture. Impression: Endotracheal tube and nasogastric tube in satisfactory position. Fairly stable atelectasis/infiltration/edema in the lungs. Findings remain more prominent on the left. Displaced mid left clavicular fracture. PROCEDURE INTERPRETED AT [facility] [place] DEPARTMENT OF RADIOLOGY Final Report Signed by: Dr. Ashli Gardiner
[2016-09-16] MEDS: LEVOFLOXACIN INJ 500 MG in PREMIX 1 EACH IV SCH (10:02)
[2016-09-16] MEDS: methylPREDNISolone SOD SUC 40 MG/1 ML VIAL IV SCH ×2 (10:05→20:36)
--- NOTE | 2016-09-16 10:47 | Pulmonology Progress Note ---
Pulmonary - PN: Subj Interval history: 51-year-old white female whom I saw in pulmonary consultation on 09/14/2016. My impressions were. 1. Altered mental status (unarousable) thought to be secondary to alcohol and Benadryl. CT of the head showed no acute findings. 2. History of alcohol abuse 3. History of high blood pressure 4. Hypokalemia of undetermined etiology 5. Acute aspiration. On 09/14/2016 the patient was evaluated with fiberoptic bronchoscopy. She had aspiration injury in both mainstem bronchi, the lingula, left lower lung and right lower lung. There were erosions and friability but no significant stenosis. Lavages were sent for bacterial and fungal studies. 6. Acute respiratory failure requiring intubation mechanical ventilation 7. See past history 8. Hypokalemia. Etiology undetermined. 09/15/2016. Bronchoscopy specimens are growing gram-negative rods and gram- positive cocci. The patient is on Zosyn. I have added Levaquin. She has no allergies listed. Potassium is 2.6. Patient is on replacement protocol. Creatinine is 0.5. White count is 8972 segs 18 lymphs and 8 monocytes. ABGs on mechanical ventilation and FiO2 of 50% shows a pH 7.47, PCO2 of 39, PO2 of 156, bicarb 28.4. Admit serum alcohol level was 188. Normal range is said to be less than 15. Patient's on weaning protocol and several other protocols that are mentioned in my plan. Overall she looks better today and her chest sounds better. Lab has been reviewed. Medicines have been reviewed 09/16/2016. This patient's sputum's are growing staph aureus and Klebsiella. She is covered by her present antibiotics. Today's chest x-ray shows endotracheal tube is in good position. There are faint bibasilar infiltrates. ABGs have improved slightly. CBC is stable. This patient's on a weaning protocol. She appears stronger than I thought she would be. I will go to a T- tube for an hour and reevaluate. Patient has been under going on delirium tremors. This appears to be improved significantly. Physical exam. Vital signs see below Neurologic. Patient moves all 4 cups. She requires sedation. She has a tendency not to be cooperative. She is on Versed at the present time and will have to watch for DTs. Neck. Symmetrical. No meningismus. Lymphatics. No submandibular cervical supraclavicular or epitrochlear adenopathy Chest. Large airway congestion. Prolonged expiration. Heart. No gallop Abdomen. Nondistended. Rare bowel sounds Extremities. Nothing to suggest deep venous thrombophlebitis. The remainder the physical exam is benign contributory Plan. 1. 09/14/2016 after examining the patient, her x-rays and her lab I elected to do fiberoptic bronchoscopy earlier this morning. Patient had bilateral aspiration injuries involving both mainstem bronchi, lingula, left lower lung and right lower lung. See report for details. 2. 09/14/2016 started the patient on weaning protocol. She has been here less than 48 hours 3. 09/14/2016. Started patient on physical therapy protocol. She has been here less than 48 hours. 4. 09/14/2016 deep venous thrombophlebitis prevention protocol. 5. 09/14/2016. Proton pump inhibitor protocol. 6. 09/15/2016. Have added Levaquin. Patient's also on Zosyn. Potassium replacement protocol. Daily chest x-ray, ABGs, lab. All protocols are in effect. 7. Daily chest x-ray, ABGs, lab. 8. See orders #9. 09/16/2016. DTs. T-tube. Repeat ABGs. See my note above Exam (Progress Note) - Constitutional Vitals: Period Temp Pulse Resp BP Sys/Briones Pulse Ox Last 24 Hr 97 F-98.7 F 59-84 11-25 82-146/53-93 97-100 Results - Labs CBC & BMP: 09/16/16 04:33 09/16/16 04:33
[2016-09-16 11:18] LABS: ABG Base Excess 1.3 MMOL/L (-2.5-2.5); ABG HCO3 25.5 MMOL/L (20-26); ABG PCO2 49.5 MM HG (35-48); ABG PH 7.354 (7.35-7.45); ABG PO2 89.9 MM HG (80-95); ABG TCO2 24.7 MMOL/L (23-27); Allen Test Positive
[2016-09-16 13:07] LABS: ABG Base Excess 2.8 MMOL/L (-2.5-2.5); ABG HCO3 26.9 MMOL/L (20-26); ABG Oxygen Saturation 96.8 % (95-100); ABG PCO2 41.2 MM HG (35-48); ABG PH 7.431 (7.35-7.45); ABG PO2 89.2 MM HG (80-95); ABG TCO2 24.5 MMOL/L (23-27); Allen Test Positive
--- NOTE | 2016-09-16 14:41 | Physician Query Form ---
CLICK EDIT DOCUMENT TO SELECT QUERY ANSWER --> OK --> SIGN Beata España RN Clinical Systems Developer W) [phone] (f) [phone] [email or web address]: Make your selection(s) from the choices in EACH section by typing an "x" and enter comments in the comment section. Please use your independent medical judgment in providing your response. This request does not imply that any particular answer is desired or expected. CLINICAL INDICATORS: (Providers should not edit this section) Based on documentation of "acute pneumonia" and "patient's sputum's are growing staph aureus and Klebsiella". Bronchoscope report states "acute aspiration". Pt. treated with IV Leavaquin and Zosyn. Community Acquired and Healthcare Acquired are both unspecified terms and require further specificity. Based on the above, could you please clarify further specificity regarding the type of pneumonia you are treating (even if specific organism may not be known) ? (X ) Aspiration pneumonia ( ) Gram negative pneumonia ( ) Gram positive pneumonia ( X) Bacterial pneumonia due to, please specify organism (if known): Klebsiella ( ) Pneumonia with Influenza ( ) Viral pneumonia ( ) Post procedural ( ) HIV associated pneumonia ( ) Radiation Pneumonitis ( ) Pneumonia due to, please specify: ( ) Clinically unable to determine ( ) Other, please specify: COMMENTS: Use of terms such as suspected, likely, or probable (associated with a specific diagnosis that is being evaluated, monitored, or treated as if it exists) are acceptable and can be restated in the discharge summary if not ruled out. MTDD
--- NOTE | 2016-09-16 14:54 | Hospitalist Progress Note ---
Assessment and Plan (1) Drug overdose Status: Acute Assessment and plan: Patient is still intubated although awake. She took vodka and benadryl. She is tolerating tube feeding Plan -Continue vent support, and Pulm's recommendations - Consider pysch vs rehab once stable and extubated Current Visit: Yes Qualifiers: Encounter type: initial encounter Injury intent: undetermined intent Qualified Code(s): T50.904A - Poisoning by unspecified drugs, medicaments and biological substances, undetermined, initial encounter (2) Acute respiratory failure Status: Acute Assessment and plan: Acute respiratory failure related to toxic ingestion and overdose of Benadryl with alcohol. Causing respiratory depression. CXR also showed progressive atelectasis/ infiltration at left lung base with small left pleural effusion. Patient had a bronchoscopy and sputum grew Klebsiella and staph auerus Plan -add IV vancomycin (Pharm to dose)to IV Zosyn, Levaquin- follow sensitivities -Continue and continue vent support -BC - negative so far -Follow Pulm consult Current Visit: Yes Qualifiers: Respiratory failure complication: unspecified whether with hypoxia or hypercapnia Qualified Code(s): J96.00 - Acute respiratory failure, unspecified whether with hypoxia or hypercapnia (3) Acute alcoholic intoxication Status: Acute Assessment and plan: Continue with banana bag, PPIs. Consider Rehab vs psych eval once patient is extubated Current Visit: Yes Qualifiers: Complication of substance-induced condition: with unspecified complication Qualified Code(s): F10.129 - Alcohol abuse with intoxication, unspecified (4) Hypokalemia Status: Acute Assessment and plan: continue to replete per protocol, bmp in am Current Visit: Yes (5) Pneumonia Status: Acute Assessment and plan: CXR showed progressive atelectasis/ infiltration at left lung base with small left pleural effusion. She had a bronchoscopy induced sputum grew staph auerus and klebsiella Plan -add IV vancomycin to Zosyn and Levaquin. BC-negative so far Current Visit: Yes (6) Hypernatremia Status: Acute Assessment and plan: continue with free water,bmp in am Current Visit: Yes (7) HTN (hypertension) Status: Acute Assessment and plan: now borderline, continue to hold Prinivil for now Current Visit: Yes Hospitalist: Subjective Interval history: Patient seen. She was awake and undergoing CPAP trials, tolerating tube feedings.Sputum grew staph aureus and klebsiella. Her urinary output is also good. Exam - Constitutional Vitals: Period Temp Pulse Resp BP Sys/Briones Pulse Ox Last 24 Hr 97 F-98.7 F 59-95 11-25 82-146/53-101 96-100 General appearance: no acute distress, other (awake but intubated) - Head Head exam: Present: normal inspection - Respiratory Respiratory exam: Present: clear to auscultation bilaterally - Cardiovascular Cardiovascular exam: Present: regular rate and rhythm - GI/Abdominal GI/Abdominal exam: Present: normal bowel sounds - Extremities Exam Extremities exam: Present: normal inspection - Neurological Exam Neurological exam: Present: other (awake but intubated) Results - Labs CBC & BMP: 09/16/16 04:33 09/16/16 04:33 Lab Results: I have reviewed the past 24 hour labs Quality Measures - Stroke Symptom Onset Unknown: No
[2016-09-16] MEDS ORDERED: VANCOMYCIN INJ 1,000 MG in SODIUM CHLORIDE 0.9% 250 ML IV ONE (14:58)
[2016-09-16] MEDS: MORPHINE 2 MG/1 ML SYRINGE IV PRN (19:10)
[2016-09-16] MEDS: ONDANSETRON 4 MG/2 ML VIAL IV PRN (19:11)
[2016-09-16] MEDS: PANTOPRAZOLE 40 MG VIAL IV SCH (20:36)
[2016-09-16] MEDS: ENOXAPARIN 40 MG/0.4 ML SYRINGE SUBCUT SCH (20:36)
[2016-09-16] MEDS: ALBUTEROL 2.5 MG/3 ML NEB RESP TX PRN (22:33)
[2016-09-17] MEDS: MORPHINE 2 MG/1 ML SYRINGE IV PRN ×3 (00:08→18:11)
[2016-09-17] MEDS: ONDANSETRON 4 MG/2 ML VIAL IV PRN ×6 (00:08→20:28)
[2016-09-17] MEDS ORDERED: NITROGLYCERIN SL 0.4 MG TABLET SL ONE (02:24)
[2016-09-17] MEDS ORDERED: ASPIRIN 325 MG TABLET ONE (02:25)
[2016-09-17] MEDS ORDERED: LORazepam 2 MG/1 ML VIAL ONE (02:31)
[2016-09-17] MEDS ORDERED: LORazepam 2 MG/1 ML VIAL IV ONE (02:32)
--- NOTE | 2016-09-17 02:33 | EKG Report ---
Stationary ECG Study [facility] Test Date: 09/17/2016 2:26:43 AM Pat Name: BRODERICK LLOYD Department: Room: 119 Gender: F Correctional Probation Officer: ABHAY : 1965 Requested by: [place] Order Number: [id number] Reading MD: SUSAN ESPINOSA Intervals [place] Rate: 95 P: 68 TN: 144 QRS: 47 QRSD: 69 T: 93 QT: 356 QTc: 409 Interpretive Statements SINUS RHYTHM LEFT ATRIAL ABNORMALITY SEPTAL MYOCARDIAL INFARCTION, PROBABLY OLD Electronically Signed On 09-17-16 20:08:07 CDT by SUSAN ESPINOSA [email or web address]
[2016-09-17 02:37] LABS: Basophils % 0.1 % (0.0-0.8); Hematocrit 32.2 VOL% (35.7-47.0); Hemoglobin 10.5 GM/DL (12.0-16.0); Immature Granulocytes % 0.9 %; Immature Granulocytes Absolute 0.12 #; Lymphocytes # 1.2 10*3/uL (1.4-4.0); Mean Corpuscular HGB Conc 32.6 GM/DL (32-36); Mean Corpuscular Hemoglobin 33 PG (27-34); Mean Corpuscular Volume 102.2 FL (87-102); Mean Platelet Volume 9.1 FL (9.6-12.0); Monocytes % 7.2 % (1.7-12.7); Neutrophils # 11.3 10*3/uL (1.4-7.4); Neutrophils % 82.8 % (38.7-73.9); Platelet Count 300 T/CUMM (130-400); Red Blood Count 3.15 MC/CUMM (3.8-5.5); Red Cell Distribution Width 12.9 % (9.3-17.3); White Blood Count 13.6 T/CUMM (4-12)
[2016-09-17 02:58] LABS: Calcium 8.3 MG/DL (8.5-10.1); Osmolality,Calculated 293.4 MOS/KG (273-304); Potassium 3.3 MMOL/L (3.5-5.1)
[2016-09-17] MEDS: PIPERACILLIN/TAZOBACTAM 3,375 MG in SODIUM CHLORIDE 0.9% 100 ML IV SCH ×3 (03:08→18:12)
[2016-09-17 03:58] LABS: ABG Base Excess 5.7 MMOL/L (-2.5-2.5); ABG HCO3 29.7 MMOL/L (20-26); ABG Oxygen Saturation 97.2 % (95-100); ABG PCO2 41.3 MM HG (35-48); ABG PH 7.475 (7.35-7.45); Allen Test Positive
--- NOTE | 2016-09-17 08:33 | Pulmonology Progress Note ---
Pulmonary - PN: Subj Interval history: 51-year-old white female whom I saw in pulmonary consultation on 09/14/2016. My impressions were. 1. Altered mental status (unarousable) thought to be secondary to alcohol and Benadryl. CT of the head showed no acute findings. 2. History of alcohol abuse 3. History of high blood pressure 4. Hypokalemia of undetermined etiology 5. Acute aspiration. On 09/14/2016 the patient was evaluated with fiberoptic bronchoscopy. She had aspiration injury in both mainstem bronchi, the lingula, left lower lung and right lower lung. There were erosions and friability but no significant stenosis. Lavages were sent for bacterial and fungal studies. 6. Acute respiratory failure requiring intubation mechanical ventilation 7. See past history 8. Hypokalemia. Etiology undetermined. 09/15/2016. Bronchoscopy specimens are growing gram-negative rods and gram- positive cocci. The patient is on Zosyn. I have added Levaquin. She has no allergies listed. Potassium is 2.6. Patient is on replacement protocol. Creatinine is 0.5. White count is 8972 segs 18 lymphs and 8 monocytes. ABGs on mechanical ventilation and FiO2 of 50% shows a pH 7.47, PCO2 of 39, PO2 of 156, bicarb 28.4. Admit serum alcohol level was 188. Normal range is said to be less than 15. Patient's on weaning protocol and several other protocols that are mentioned in my plan. Overall she looks better today and her chest sounds better. Lab has been reviewed. Medicines have been reviewed 09/16/2016. This patient's sputum's are growing staph aureus and Klebsiella. She is covered by her present antibiotics. Today's chest x-ray shows endotracheal tube is in good position. There are faint bibasilar infiltrates. ABGs have improved slightly. CBC is stable. This patient's on a weaning protocol. She appears stronger than I thought she would be. I will go to a T- tube for an hour and reevaluate. Patient has been under going on delirium tremors. This appears to be improved significantly. 09/17/2016. This patient was extubated on 09/16/2016. Today's x-ray shows increased markings in the left upper lung left lower lung and to a lesser extent in the right lower lung. She is growing staph aureus and Klebsiella from her rhonchi 3 specimens. Today's x-ray looks like she may be trying to develop mild pulmonary edema. I will check a BNP and if this is grossly elevated we may gently diurese her. ABGs on FiO2 28% shows a pH 7.47, PCO2 is 41, PO2 is 97, bicarb is 29.7. Potassium is low at 3.3 and is being replaced. White count is 13,600 with 83 segs. H&H is 10.5/32.2. Platelets of 300,000. Physical exam. Vital signs see below Neurologic. Patient moves all 4 cups. She requires sedation. She has a tendency not to be cooperative. She is on Versed at the present time and will have to watch for DTs. Neck. Symmetrical. No meningismus. Lymphatics. No submandibular cervical supraclavicular or epitrochlear adenopathy Chest. Large airway congestion. Prolonged expiration. Heart. No gallop Abdomen. Nondistended. Rare bowel sounds Extremities. Nothing to suggest deep venous thrombophlebitis. The remainder the physical exam is benign contributory Plan. 1. 09/14/2016 after examining the patient, her x-rays and her lab I elected to do fiberoptic bronchoscopy earlier this morning. Patient had bilateral aspiration injuries involving both mainstem bronchi, lingula, left lower lung and right lower lung. See report for details. 2. 09/14/2016 started the patient on weaning protocol. She has been here less than 48 hours 3. 09/14/2016. Started patient on physical therapy protocol. She has been here less than 48 hours. 4. 09/14/2016 deep venous thrombophlebitis prevention protocol. 5. 09/14/2016. Proton pump inhibitor protocol. 6. 09/15/2016. Have added Levaquin. Patient's also on Zosyn. Potassium replacement protocol. Daily chest x-ray, ABGs, lab. All protocols are in effect. 7. Daily chest x-ray, ABGs, lab. 8. See orders #9. 09/16/2016. DTs. T-tube. Repeat ABGs. See my note above 10. 09/17/2016. Extubated on 09/16/2016. ABGs are acceptable. Chest x-ray may be tending towards congestive heart failure. Get BMP and diurese if needed. See my note above Exam (Progress Note) - Constitutional Vitals: Period Temp Pulse Resp BP Sys/Briones Pulse Ox Last 24 Hr 97.7 F-99.3 F 75-109 12-23 99-142/68-116 96-100 Results - Labs CBC & BMP: 09/17/16 02:35 09/17/16 02:35
[2016-09-17] MEDS: LEVOFLOXACIN INJ 500 MG in PREMIX 1 EACH IV SCH (09:33)
[2016-09-17] MEDS: methylPREDNISolone SOD SUC 40 MG/1 ML VIAL IV SCH ×2 (09:33→20:28)
--- NOTE | 2016-09-17 10:16 | XRay Report ---
Portable chest. Indication: Shortness of breath. Comparison: September 16, 2016. The heart is normal in size. There is worsening elevation of the left hemidiaphragm. The pulmonary vasculature is normal. Bilateral infiltrates there has been interval worsening of the primarily alveolar infiltrates involving the left lung, and development of lesser but similar findings within the right lung. No pneumothorax. No definite pleural effusion. An endotracheal tube and nasogastric tube have been removed. Impression: Worsening infiltrates. These may be due to pneumonia or pulmonary edema. PROCEDURE INTERPRETED AT [facility] DEPARTMENT OF RADIOLOGY Final Report Signed by: Dr. Carol Norris
--- NOTE | 2016-09-17 10:35 | Hospitalist Progress Note ---
Assessment and Plan (1) Drug overdose Status: Acute Assessment and plan: Patient was extubated yesterday and currently doing well on [place] oxygen. Family states she took meds intentionally to harm herself. She was found with a bottle of vodka containing a pink colored fluid consistent with Benadryl.Her elevated alcohol upon arrival level suggest alcohol intoxication. Plan -Suicide watch -Psych clearance-social media marketing specialist consult -continue with current care Current Visit: Yes Qualifiers: Encounter type: initial encounter Injury intent: undetermined intent Qualified Code(s): T50.904A - Poisoning by unspecified drugs, medicaments and biological substances, undetermined, initial encounter (2) Acute respiratory failure Status: Acute Assessment and plan: Acute respiratory failure related to toxic ingestion and overdose of Benadryl with alcohol. Causing respiratory depression. CXR also showed progressive atelectasis/ infiltration at left lung base with small left pleural effusion. Patient had a bronchoscopy and sputum grew Klebsiella and staph auerus 09/17/16 CXR showed worsening infiltrates which may be due to pneumonia vs pulm edema She was extubated yesterday and currently doing well on [place] oxygen. Plan -continue IV Zosyn and Levaquin. -continue with Pulm's recommendations. -DC IVF -IV Lasix x1 Current Visit: Yes Qualifiers: Respiratory failure complication: unspecified whether with hypoxia or hypercapnia Qualified Code(s): J96.00 - Acute respiratory failure, unspecified whether with hypoxia or hypercapnia (3) Acute alcoholic intoxication Status: Acute Assessment and plan: will switch to po thiamine, folic acid and multivitamins. Case kaneleandro has been consulted for Rehab vs psych eval Current Visit: Yes Qualifiers: Complication of substance-induced condition: with unspecified complication Qualified Code(s): F10.129 - Alcohol abuse with intoxication, unspecified (4) Hypokalemia Status: Acute Assessment and plan: continue to replete per protocol, bmp in am Current Visit: Yes (5) Pneumonia Status: Acute Assessment and plan: CXR showed progressive atelectasis/ infiltration at left lung base with small left pleural effusion. She had a bronchoscopy induced sputum grew staph auerus and klebsiella 09/17/16- repeat CXR showed worsening infiltrates which may be due to pneumonia vs pulm edema Plan Continue IV Zosyn/Levaquin IV Lasix x1 continue other management Current Visit: Yes (6) Hypernatremia Status: Acute Assessment and plan: Encourage patient to drink water, this is slowly improving, bmp in am Current Visit: Yes (7) HTN (hypertension) Status: Acute Assessment and plan: now borderline, continue to hold Prinivil for now Current Visit: Yes Hospitalist: Subjective Interval history: Patient seen this am. She was extubated yesterday, she is currently breathing well on [place] of oxygen. She ate her breakfast well though states she feels awful. She also had a panic attack last night and Family confirms she actually took the meds to end her life.They are seeking help for her. Exam - Constitutional Vitals: Period Temp Pulse Resp BP Sys/Briones Pulse Ox Last 24 Hr 97.7 F-99.3 F 75-109 12-23 99-142/68-116 96-100 General appearance: no acute distress - Head Head exam: Present: normal inspection - Respiratory Respiratory exam: Present: clear to auscultation bilaterally - Cardiovascular Cardiovascular exam: Present: regular rate and rhythm - GI/Abdominal GI/Abdominal exam: Present: normal bowel sounds - Extremities Exam Extremities exam: Present: normal inspection - Neurological Exam Neurological exam: Present: alert, oriented X3 - Psychiatric Psychiatric exam: Present: depressed Results - Labs CBC & BMP: 09/17/16 02:35 09/17/16 02:35 Lab Results: I have reviewed the past 24 hour labs Quality Measures - Stroke Symptom Onset Unknown: No
[2016-09-17] MEDS ORDERED: FUROSEMIDE 40 MG/4 ML VIAL IV ONE (10:48)
[2016-09-17] MEDS: POTASSIUM CHLORIDE 20 MEQ/15 ML UDCUP PO SCH ×2 (11:26→20:29)
[2016-09-17] MEDS: ALPRAZolam 0.5 MG TABLET PO PRN ×2 (11:26→20:29)
[2016-09-17] MEDS: ALBUTEROL 2.5 MG/3 ML NEB RESP TX PRN (13:07)
[2016-09-17] MEDS: PROMETHAZINE 25 MG/1 ML VIAL IM PRN ×2 (16:50→21:28)
[2016-09-17] MEDS: ENOXAPARIN 40 MG/0.4 ML SYRINGE SUBCUT SCH (20:29)
[2016-09-17] MEDS: PANTOPRAZOLE 40 MG VIAL IV SCH (20:30)
[2016-09-17] MEDS: FOLIC ACID 1 MG TABLET PO SCH (20:30)
[2016-09-18] MEDS: ONDANSETRON 4 MG/2 ML VIAL IV PRN ×4 (02:41→20:55)
[2016-09-18] MEDS: PIPERACILLIN/TAZOBACTAM 3,375 MG in SODIUM CHLORIDE 0.9% 100 ML IV SCH ×3 (02:41→18:27)
[2016-09-18] MEDS: MORPHINE 2 MG/1 ML SYRINGE IV PRN ×2 (02:41→23:16)
[2016-09-18 03:29] LABS: ABG Oxygen Saturation 93.1 % (95-100); ABG PCO2 47.4 MM HG (35-48); ABG PH 7.447 (7.35-7.45); ABG PO2 67.8 MM HG (80-95); ABG TCO2 33.4 MMOL/L (23-27); Allen Test Positive
[2016-09-18 05:52] LABS: Eosinophils % 0.1 % (0.00-10.9); Hematocrit 29.8 VOL% (35.7-47.0); Hemoglobin 9.6 GM/DL (12.0-16.0); Immature Granulocytes % 1.8 %; Immature Granulocytes Absolute 0.18 #; Lymphocytes # 1.5 10*3/uL (1.4-4.0); Lymphocytes % 15.6 % (21.3-54.2); Mean Corpuscular HGB Conc 32.2 GM/DL (32-36); Mean Corpuscular Hemoglobin 34 PG (27-34); Mean Corpuscular Volume 104.2 FL (87-102); Mean Platelet Volume 10.2 FL (9.6-12.0); Monocytes # 1.2 10*3/uL (0.11-0.8); Monocytes % 11.9 % (1.7-12.7); Neutrophils % 70.6 % (38.7-73.9); Platelet Count 293 T/CUMM (130-400); Red Blood Count 2.86 MC/CUMM (3.8-5.5); Red Cell Distribution Width 12.8 % (9.3-17.3); White Blood Count 9.9 T/CUMM (4-12)
[2016-09-18 06:28] LABS: Calcium 8.5 MG/DL (8.5-10.1); Magnesium 1.8 MG/DL (1.8-2.4); Osmolality,Calculated 291.3 MOS/KG (273-304)
[2016-09-18] MEDS: MIDAZOLAM 100 MG in SODIUM CHLORIDE 0.9% 80 ML IV SCH (07:02)
[2016-09-18] MEDS: ALPRAZolam 0.5 MG TABLET PO PRN ×2 (08:05→20:57)
[2016-09-18] MEDS: POTASSIUM CHLORIDE 20 MEQ/15 ML UDCUP PO SCH ×2 (08:06→20:55)
[2016-09-18] MEDS: THIAMINE 100 MG TABLET PO SCH (08:06)
[2016-09-18] MEDS: LEVOFLOXACIN INJ 500 MG in PREMIX 1 EACH IV SCH (08:06)
[2016-09-18] MEDS: methylPREDNISolone SOD SUC 40 MG/1 ML VIAL IV SCH ×2 (08:06→20:56)
[2016-09-18] MEDS: MULTIVITAMIN (OCUVITE) TABLET PO SCH (08:06)
--- NOTE | 2016-09-18 08:31 | Pulmonology Progress Note ---
Pulmonary - PN: Subj Interval history: 51-year-old white female whom I saw in pulmonary consultation on 09/14/2016. My impressions were. 1. Altered mental status (unarousable) thought to be secondary to alcohol and Benadryl. CT of the head showed no acute findings. 2. History of alcohol abuse 3. History of high blood pressure 4. Hypokalemia of undetermined etiology 5. Acute aspiration. On 09/14/2016 the patient was evaluated with fiberoptic bronchoscopy. She had aspiration injury in both mainstem bronchi, the lingula, left lower lung and right lower lung. There were erosions and friability but no significant stenosis. Lavages were sent for bacterial and fungal studies. 6. Acute respiratory failure requiring intubation mechanical ventilation 7. See past history 8. Hypokalemia. Etiology undetermined. 09/15/2016. Bronchoscopy specimens are growing gram-negative rods and gram- positive cocci. The patient is on Zosyn. I have added Levaquin. She has no allergies listed. Potassium is 2.6. Patient is on replacement protocol. Creatinine is 0.5. White count is 8972 segs 18 lymphs and 8 monocytes. ABGs on mechanical ventilation and FiO2 of 50% shows a pH 7.47, PCO2 of 39, PO2 of 156, bicarb 28.4. Admit serum alcohol level was 188. Normal range is said to be less than 15. Patient's on weaning protocol and several other protocols that are mentioned in my plan. Overall she looks better today and her chest sounds better. Lab has been reviewed. Medicines have been reviewed 09/16/2016. This patient's sputum's are growing staph aureus and Klebsiella. She is covered by her present antibiotics. Today's chest x-ray shows endotracheal tube is in good position. There are faint bibasilar infiltrates. ABGs have improved slightly. CBC is stable. This patient's on a weaning protocol. She appears stronger than I thought she would be. I will go to a T- tube for an hour and reevaluate. Patient has been under going on delirium tremors. This appears to be improved significantly. 09/17/2016. This patient was extubated on 09/16/2016. Today's x-ray shows increased markings in the left upper lung left lower lung and to a lesser extent in the right lower lung. She is growing staph aureus and Klebsiella from her rhonchi 3 specimens. Today's x-ray looks like she may be trying to develop mild pulmonary edema. I will check a BNP and if this is grossly elevated we may gently diurese her. ABGs on FiO2 28% shows a pH 7.47, PCO2 is 41, PO2 is 97, bicarb is 29.7. Potassium is low at 3.3 and is being replaced. White count is 13,600 with 83 segs. H&H is 10.5/32.2. Platelets of 300,000. 09/18/2016. This patient was extubated on 09/16/2016. She has done fairly well from a pulmonary standpoint. Her chest x-ray shows hyperinflation and generalized increased interstitial markings. Left watch her closely for congestive heart failure. ABGs on FiO2 of 36% showed pH 7.447, PCO2 47.4, PO2 is 67.8 and a bicarb of 32. Natruretic peptide is normal at 103. Electrolytes normal. Creatinine is 0.40. BUN is 5. CBC is stable. Bronchoscopy specimens have grown Klebsiella and Staphylococcus aureus. These are being treated with the appropriate antibiotics. Physical exam. Vital signs see below Neurologic. Patient moves all 4 cups. She requires sedation. She has a tendency not to be cooperative. She is on Versed at the present time and will have to watch for DTs. Neck. Symmetrical. No meningismus. Lymphatics. No submandibular cervical supraclavicular or epitrochlear adenopathy Chest. Large airway congestion. Prolonged expiration. Heart. No gallop Abdomen. Nondistended. Rare bowel sounds Extremities. Nothing to suggest deep venous thrombophlebitis. The remainder the physical exam is benign contributory Plan. 1. 09/14/2016 after examining the patient, her x-rays and her lab I elected to do fiberoptic bronchoscopy earlier this morning. Patient had bilateral aspiration injuries involving both mainstem bronchi, lingula, left lower lung and right lower lung. See report for details. 2. 09/14/2016 started the patient on weaning protocol. She has been here less than 48 hours 3. 09/14/2016. Started patient on physical therapy protocol. She has been here less than 48 hours. 4. 09/14/2016 deep venous thrombophlebitis prevention protocol. 5. 09/14/2016. Proton pump inhibitor protocol. 6. 09/15/2016. Have added Levaquin. Patient's also on Zosyn. Potassium replacement protocol. Daily chest x-ray, ABGs, lab. All protocols are in effect. 7. Daily chest x-ray, ABGs, lab. 8. See orders #9. 09/16/2016. DTs. T-tube. Repeat ABGs. See my note above 10. 09/17/2016. Extubated on 09/16/2016. ABGs are acceptable. Chest x-ray may be tending towards congestive heart failure. Get BMP and diurese if needed. See my note above 11. 09/18/2016. Extubated 09/16/2016. Chest x-ray and ABGs are doing well. Patient has no congestive heart failure. Exam (Progress Note) - Constitutional Vitals: Period Temp Pulse Resp BP Sys/Briones Pulse Ox Last 24 Hr 96.8 F-99.2 F 60-94 12-29 97-150/65-99 91-100 Results - Labs CBC & BMP: 09/18/16 05:49 09/18/16 05:49
--- NOTE | 2016-09-18 09:08 | XRay Report ---
Portable chest. Indication: Shortness of breath. Comparison: September 17, 2016. The heart is normal in size. The pulmonary vasculature is normal. Bilateral infiltrates are essentially stable. Worsening atelectasis at the left lung base. Overriding comminuted fracture of the left clavicle. No pneumothorax. Impression: Stable bilateral infiltrates. Worsening left basilar atelectasis. PROCEDURE INTERPRETED AT [facility] DEPARTMENT OF RADIOLOGY Final Report Signed by: Dr. Carol Norris
--- NOTE | 2016-09-18 11:21 | Hospitalist Progress Note ---
Assessment and Plan (1) Drug overdose Status: Acute Assessment and plan: Family states she took meds intentionally to harm herself. She was found with a bottle of vodka containing a pink colored fluid consistent with Benadryl.Her elevated alcohol upon arrival level suggest alcohol intoxication 09/17/2016 -Patient was extubated yesterday and currently doing well on [place] oxygen. 09/18/2016-patient is doing well and breathing without difficulties.. Plan -Continue Suicide watch -Awaiting [facility] response- clinical social work aide called upon them for possible transfer. -continue with current care Current Visit: Yes Qualifiers: Encounter type: initial encounter Injury intent: undetermined intent Qualified Code(s): T50.904A - Poisoning by unspecified drugs, medicaments and biological substances, undetermined, initial encounter (2) Acute respiratory failure Status: Acute Assessment and plan: Acute respiratory failure related to toxic ingestion and overdose of Benadryl with alcohol. Causing respiratory depression. CXR also showed progressive atelectasis/ infiltration at left lung base with small left pleural effusion. Patient had a bronchoscopy and sputum grew Klebsiella and staph auerus 09/17/16 CXR showed worsening infiltrates which may be due to pneumonia vs pulm edema She was extubated yesterday and currently doing well on [place] oxygen. 09/18/2016- Patient is breathing well Plan -continue IV Zosyn and Levaquin. -continue with Pulm's recommendations. Current Visit: Yes Qualifiers: Respiratory failure complication: unspecified whether with hypoxia or hypercapnia Qualified Code(s): J96.00 - Acute respiratory failure, unspecified whether with hypoxia or hypercapnia (3) Acute alcoholic intoxication Status: Acute Assessment and plan: Case ruchi has been consulted- working on Rehab vs psych eval Plan will continue with po thiamine, folic acid and multivitamins. Current Visit: Yes Qualifiers: Complication of substance-induced condition: with unspecified complication Qualified Code(s): F10.129 - Alcohol abuse with intoxication, unspecified (4) Hypokalemia Status: Acute Assessment and plan: repleted. Current Visit: Yes (5) Pneumonia Status: Acute Assessment and plan: CXR showed progressive atelectasis/ infiltration at left lung base with small left pleural effusion. She had a bronchoscopy induced sputum grew staph auerus and klebsiella 09/17/16- repeat CXR showed worsening infiltrates which may be due to pneumonia vs pulm edema 09/18/16 CXR-stable bilateral infiltrates. Worsening left basilar atelestasis Plan Continue IV Zosyn/Levaquin Consider incentive spirometry, patient to ambulate more continue other management Current Visit: Yes (6) Hypernatremia Status: Acute Assessment and plan: Continue to Encourage patient to drink water, bmp in am Current Visit: Yes (7) HTN (hypertension) Status: Acute Assessment and plan: now borderline, continue to hold Prinivil for now Current Visit: Yes Hospitalist: Subjective Interval history: Nursing staff states patient keeps complaining of pain and nausea. She told me she was fine though she want having occasional dry cough.field services manager saw her yesterday and they are trying to refer her to [facility] psych unit. Exam - Constitutional Vitals: Period Temp Pulse Resp BP Sys/Briones Pulse Ox Last 24 Hr 96.8 F-99.2 F 60-94 12-29 97-150/65-99 91-100 General appearance: no acute distress - Head Head exam: Present: normal inspection - Neck Neck exam: Present: normal inspection - Respiratory Respiratory exam: Present: clear to auscultation bilaterally - Cardiovascular Cardiovascular exam: Present: regular rate and rhythm - GI/Abdominal GI/Abdominal exam: Present: normal bowel sounds - Extremities Exam Extremities exam: Present: normal inspection - Neurological Exam Neurological exam: Present: alert, oriented X3 Results - Labs CBC & BMP: 09/18/16 05:49 09/18/16 05:49 Lab Results: I have reviewed the past 24 hour labs Quality Measures - Stroke Symptom Onset Unknown: No
[2016-09-18] MEDS: FOLIC ACID 1 MG TABLET PO SCH (20:55)
[2016-09-18] MEDS: ENOXAPARIN 40 MG/0.4 ML SYRINGE SUBCUT SCH (20:56)
[2016-09-18] MEDS: PANTOPRAZOLE 40 MG VIAL IV SCH (20:56)
[2016-09-18] MEDS: PROMETHAZINE 25 MG/1 ML VIAL IM PRN (23:17)
[2016-09-19 03:50] LABS: Allen Test Positive
[2016-09-19 03:51] LABS: ABG Base Excess 4.2 MMOL/L (-2.5-2.5); ABG HCO3 28.1 MMOL/L (20-26); ABG Oxygen Saturation 92.9 % (95-100); ABG PCO2 45.8 MM HG (35-48); ABG PH 7.414 (7.35-7.45); ABG PO2 63.4 MM HG (80-95); ABG TCO2 26.6 MMOL/L (23-27)
[2016-09-19] MEDS: MORPHINE 2 MG/1 ML SYRINGE IV PRN (04:00)
[2016-09-19] MEDS: PIPERACILLIN/TAZOBACTAM 3,375 MG in SODIUM CHLORIDE 0.9% 100 ML IV SCH ×2 (04:00→09:57)
[2016-09-19] MEDS: ONDANSETRON 4 MG/2 ML VIAL IV PRN ×2 (04:00→08:57)
[2016-09-19 05:43] LABS: Basophils % 0.2 % (0.0-0.8); Eosinophils % 0.2 % (0.00-10.9); Hematocrit 32.5 VOL% (35.7-47.0); Hemoglobin 10.2 GM/DL (12.0-16.0); Immature Granulocytes % 2.8 %; Immature Granulocytes Absolute 0.34 #; Lymphocytes # 1.9 10*3/uL (1.4-4.0); Lymphocytes % 15.4 % (21.3-54.2); Mean Corpuscular HGB Conc 31.4 GM/DL (32-36); Mean Corpuscular Hemoglobin 33 PG (27-34); Mean Corpuscular Volume 104.5 FL (87-102); Mean Platelet Volume 9.6 FL (9.6-12.0); Monocytes # 1.1 10*3/uL (0.11-0.8); Monocytes % 8.8 % (1.7-12.7); Neutrophils # 8.7 10*3/uL (1.4-7.4); Neutrophils % 72.6 % (38.7-73.9); Platelet Count 375 T/CUMM (130-400); Red Blood Count 3.11 MC/CUMM (3.8-5.5); Red Cell Distribution Width 12.7 % (9.3-17.3)
[2016-09-19 06:12] LABS: Calcium 8.5 MG/DL (8.5-10.1); Osmolality,Calculated 286.7 MOS/KG (273-304); Potassium 4.7 MMOL/L (3.5-5.1)
[2016-09-19 06:15] LABS: Phosphorous 3.4 MG/DL (2.5-4.9); Prealbumin 18.7 MG/DL (20-40)
--- NOTE | 2016-09-19 07:23 | XRay Report ---
XR chest 1V portable Indication: Shortness of breath. Chest one view: Comparison yesterday. Heart size and mediastinal contours remain normal. Nonspecific diffuse coarsening of the interstitium of the lungs is stable with continued focal opacity at the left lung base. Left clavicle fracture stable. Impression: No change. PROCEDURE INTERPRETED AT [facility] DEPARTMENT OF RADIOLOGY Final Report Signed by: Maximiliano De Leon M.D.
[2016-09-19] MEDS: THIAMINE 100 MG TABLET PO SCH (08:56)
[2016-09-19] MEDS: LEVOFLOXACIN INJ 500 MG in PREMIX 1 EACH IV SCH (08:56)
[2016-09-19] MEDS: POTASSIUM CHLORIDE 20 MEQ/15 ML UDCUP PO SCH (08:58)
[2016-09-19] MEDS: methylPREDNISolone SOD SUC 40 MG/1 ML VIAL IV SCH (09:07)
[2016-09-19] MEDS: MULTIVITAMIN (OCUVITE) TABLET PO SCH (09:07)
--- NOTE | 2016-09-19 10:51 | Hospitalist Progress Note ---
Assessment and Plan (1) Drug overdose Status: Acute Assessment and plan: Family states she took meds intentionally to harm herself. She was found with a bottle of vodka containing a pink colored fluid consistent with Benadryl.Her elevated alcohol upon arrival level suggest alcohol intoxication 09/17/2016 -Patient was extubated yesterday and currently doing well on [place] oxygen. 09/18/2016-patient is doing well and breathing without difficulties.. Plan -Continue Suicide watch -Awaiting [facility] response- health care social worker called upon them for possible transfer. -continue with current care Current Visit: Yes Qualifiers: Encounter type: initial encounter Injury intent: undetermined intent Qualified Code(s): T50.904A - Poisoning by unspecified drugs, medicaments and biological substances, undetermined, initial encounter (2) Acute respiratory failure Status: Acute Assessment and plan: Acute respiratory failure related to toxic ingestion and overdose of Benadryl with alcohol. Causing respiratory depression. CXR also showed progressive atelectasis/ infiltration at left lung base with small left pleural effusion. Patient had a bronchoscopy and sputum grew Klebsiella and staph auerus 09/17/16 CXR showed worsening infiltrates which may be due to pneumonia vs pulm edema She was extubated yesterday and currently doing well on [place] oxygen. 09/18/2016- Patient is breathing well Plan -continue IV Zosyn and Levaquin. -continue with Pulm's recommendations. Current Visit: Yes Qualifiers: Respiratory failure complication: unspecified whether with hypoxia or hypercapnia Qualified Code(s): J96.00 - Acute respiratory failure, unspecified whether with hypoxia or hypercapnia (3) Acute alcoholic intoxication Status: Acute Assessment and plan: Case ruchi has been consulted- working on Rehab vs psych eval Plan will continue with po thiamine, folic acid and multivitamins. Current Visit: Yes Qualifiers: Complication of substance-induced condition: with unspecified complication Qualified Code(s): F10.129 - Alcohol abuse with intoxication, unspecified (4) Hypokalemia Status: Acute Assessment and plan: repleted. Current Visit: Yes (5) Pneumonia Status: Acute Assessment and plan: CXR showed progressive atelectasis/ infiltration at left lung base with small left pleural effusion. She had a bronchoscopy induced sputum grew staph auerus and klebsiella 09/17/16- repeat CXR showed worsening infiltrates which may be due to pneumonia vs pulm edema 09/18/16 CXR-stable bilateral infiltrates. Worsening left basilar atelestasis Plan Continue IV Zosyn/Levaquin Consider incentive spirometry, patient to ambulate more continue other management Current Visit: Yes (6) Hypernatremia Status: Acute Assessment and plan: Continue to Encourage patient to drink water, bmp in am Current Visit: Yes (7) HTN (hypertension) Status: Acute Assessment and plan: now borderline, continue to hold Prinivil for now Current Visit: Yes Exam - Constitutional Vitals: Period Temp Pulse Resp BP Sys/Briones Pulse Ox Last 24 Hr 97.4 F-99.1 F 59-97 12-24 94-135/52-96 89-98 Results - Labs CBC & BMP: 09/19/16 05:02 09/19/16 05:02 Quality Measures - Stroke Symptom Onset Unknown: No
--- NOTE | 2016-09-19 11:07 | Discharge Summary ---
Hospital Course - Hospital Course Hospital Course: Ms. Evangelista is a 51 year old female with a long standing history of ETOH abuse who is currently undergoing a divorce. She states that she was trying to sleep and took a combination of vodka and benadryl.Family found her unresponsive so they called EMS who brought her to the ER. Enroute, she received some Narcan, upon arrival to the ER, CT head showed no acute changes, she was subsequently intubated and admitted to the unit.CXR a showed progressive atelectasis/ infiltration at left lung base with small left pleural effusion.She was began on IV Zosyn,Levaquin.Pulm was consulted.She had a bronchoscopy induced sputum grew staph auerus and klebsiella. BC was negative.Her Prinivil was held due to borderline bp.He received some potassium supplements.She also got banana bag and PPIs.We gave free water for her mild hypernatremia. She was subsequently extubated. Family stated that her overdose was intentional.She was placed on 1:1 suicide watch.creative services intern got involved , they tried to transfer to [facility] but she was declined. When I spoke to her this am, she denied ever wanting to harm herself. She states she was just trying to sleep. She has agreed to go to [facility]) as outpatient. We will schedule an appointment before she leaves. Her vitals are stable.She has improved clinically so we will be sending her home today.PCP to follow up in 1week, she will go home on Levaquin 750mg daily [id number]. t - Time spent with patient Time with patient DS: Greater than 30 minutes Diagnosis - Discharge Diagnosis (1) Drug overdose Status: Acute (2) Acute respiratory failure Status: Acute (3) Acute alcoholic intoxication Status: Acute (4) Hypokalemia Status: Acute (5) Pneumonia Status: Acute (6) Hypernatremia Status: Acute (7) HTN (hypertension) Status: Acute Discharge Plan - Discharge Data Disposition: Disch To Home/Self Care Condition at Discharge: Stable Discharge Diet: heart healthy Activity: resume usual activities as tolerated - Discharge Medications New Multivitamin (Ocuvite) [Ocuvite] 1 tablet PO DAILY tablet ALPRAZolam [Xanax] 0.5 mg PO BID PRN #20 tablet PRN Reason: Anxiety Folic Acid Tab 1 mg PO BEDTIME #30 tablet HYDROcodone/ACETAMIN 7.5-325 [[place] 7.5-325] 1 tablet PO Q6H PRN #20 tablet PRN Reason: Pain Moderate (4-7) Levofloxacin Tab [Levaquin Tab] 750 mg PO DAILY #10 tablet Pantoprazole Tab [Protonix Tab] 40 mg PO DAILY #30 tablet Thiamine Tab [Vitamin B1 Tab] 100 mg PO DAILY #30 tablet Continue traZODone [Desyrel] 100 mg PO BEDTIME Mirtazapine 15 mg PO BEDTIME Discontinued Amlodipine Besylate 5 mg PO DAILY Sulfamethoxazole/Trimethoprim [Sulfamethox/Trimethoprim 800-160 Tab] 1 tablet PO BID - Follow Up or Referral - Forms/Instructions Additional Discharge Instructions: Follow with August (psych clinic) today and PCP in 1week. ) Exam - Constitutional Vitals: Period Temp Pulse Resp BP Sys/Briones Pulse Ox Last 24 Hr 97.4 F-99.1 F 59-97 12-24 94-135/52-96 89-98 General appearance: no acute distress - Head Head exam: Present: normal inspection - Respiratory Respiratory exam: Present: clear to auscultation bilaterally - Cardiovascular Cardiovascular exam: Present: regular rate and rhythm - GI/Abdominal GI/Abdominal exam: Present: normal bowel sounds - Extremities Exam Extremities exam: Present: normal inspection - Back Exam Back exam: Present: normal inspection Discharge Results Procedures and tests throughout hospitalization: Pending Orders 09/15/16 04:00 Fungal Culture w/ Prep IN AM 09/19/16 04:41 MRSA Surveillence, Inf Control Stat 09/19/16 08:11 US liver Stat 09/20/16 04:00 XR chest 1V portable IN AM Basic Metabolic Panel w/Mg IN AM 09/21/16 04:00 XR chest 1V portable IN AM 09/22/16 04:00 Magnesium MOTH Phosphorous MOTH Prealbumin MOTH Labs on day of discharge: Labs from last 24 hours 09/19/16 09/19/16 09/19/16 05:02 05:02 05:02 WBC 12.0 RBC 3.11 L Hgb 10.2 L Hct 32.5 L MCV 104.5 H MCH 33 MCHC 31.4 L RDW 12.7 Plt Count 375 D MPV 9.6 Neut % (Auto) 72.6 Lymph % (Auto) 15.4 L Reeves % (Auto) 8.8 Eos % (Auto) 0.2 Baso % (Auto) 0.2 Neut # (Auto) 8.7 H Lymph # (Auto) 1.9 Reeves # (Auto) 1.1 H Eos # (Auto) 0.0 Baso # (Auto) 0.0 Immature Gran % 2.8 Nucleated RBC % 0.0 Immature Gran # 0.34 Nucleated RBCs # 0.00 ABG pH ABG pCO2 ABG pO2 ABG HCO3 ABG Total CO2 ABG O2 Saturation ABG Base Excess FiO2 Sodium Potassium Chloride Carbon Dioxide Anion Gap BUN Creatinine GFR Calculation BUN/Creatinine Ratio Glucose Calculated Osmolality Calcium Phosphorus 3.4 Magnesium B-Natriuretic Peptide 187 H Prealbumin 18.7 L 09/19/16 09/19/16 05:02 03:32 WBC RBC Hgb Hct MCV MCH MCHC RDW Plt Count MPV Neut % (Auto) Lymph % (Auto) Reeves % (Auto) Eos % (Auto) Baso % (Auto) Neut # (Auto) Lymph # (Auto) Reeves # (Auto) Eos # (Auto) Baso # (Auto) Immature Gran % Nucleated RBC % Immature Gran # Nucleated RBCs # ABG pH 7.414 ABG pCO2 45.8 ABG pO2 63.4 L ABG HCO3 28.1 H ABG Total CO2 26.6 ABG O2 Saturation 92.9 L ABG Base Excess 4.2 H FiO2 28.00 Sodium 145 Potassium 4.7 Chloride 107 Carbon Dioxide 30 Anion Gap 12.7 BUN 8 Creatinine 0.50 L GFR Calculation 109 BUN/Creatinine Ratio 16.00 Glucose 109 H Calculated Osmolality 286.7 Calcium 8.5 Phosphorus Magnesium 2.0 B-Natriuretic Peptide Prealbumin DS: Provider Date of admission: 09/12/16 21:10 Primary care physician: . No PCP Attending physician on admission: Staci Mandel MD Consults: 09/13/16 09:21 Consult to Physician [CONS] Routine Comment: Consulting Provider: Consult to Specialist Group: Pulmonology When should Consulting Provider be notified: Now Person Notified: Lizbeth Date Notified: 09/14/16 Time Notified: 07:20 09/15/16 08:58 Consult to Dietitian [CONS] Routine Reason for Dietitian: TF-Initiate/Manage 09/16/16 14:59 Consult to Pharmacy [CONS] Routine Reason for Pharmacy Consult: Dose/Manage Vancomycin 09/17/16 10:18 Consult to Case Mgmt/Social Srvs [CONS] Routine Reason for Case Mgmt/Social Srvs: Psychiatric Management Consult Comment: overdose. Discharging clinician: Staci Mandel MD
--- NOTE | 2016-09-19 11:42 | Pulmonology Progress Note ---
Pulmonary - PN: Subj Interval history: De Painter, ANP-BC, GNP-BC, acting as scribe for Dr. Egdar Rolle This is a 51-year-old white female who we saw in initial pulmonary consultation on 09/14/2016. At that time, our impressions were: 1. Altered mental status (unarousable) thought to be secondary to alcohol and Benadryl. CT of the head showed no acute findings. 2. History of alcohol abuse 3. History of high blood pressure 4. Hypokalemia of undetermined etiology 5. Acute aspiration. On 09/14/2016 the patient was evaluated with fiberoptic bronchoscopy. She had aspiration injury in both mainstem bronchi, the lingula, left lower lung and right lower lung. There were erosions and friability but no significant stenosis. Lavages were sent for bacterial and fungal studies. 6. Acute respiratory failure requiring intubation mechanical ventilation 7. See past history 8. Hypokalemia. Etiology undetermined. 09/15/2016. Bronchoscopy specimens are growing gram-negative rods and gram- positive cocci. The patient is on Zosyn. I have added Levaquin. She has no allergies listed. Potassium is 2.6. Patient is on replacement protocol. Creatinine is 0.5. White count is 8972 segs 18 lymphs and 8 monocytes. ABGs on mechanical ventilation and FiO2 of 50% shows a pH 7.47, PCO2 of 39, PO2 of 156, bicarb 28.4. Admit serum alcohol level was 188. Normal range is said to be less than 15. Patient's on weaning protocol and several other protocols that are mentioned in my plan. Overall she looks better today and her chest sounds better. Lab has been reviewed. Medicines have been reviewed 09/16/2016. This patient's sputum's are growing staph aureus and Klebsiella. She is covered by her present antibiotics. Today's chest x-ray shows endotracheal tube is in good position. There are faint bibasilar infiltrates. ABGs have improved slightly. CBC is stable. This patient's on a weaning protocol. She appears stronger than I thought she would be. I will go to a T- tube for an hour and reevaluate. Patient has been under going on delirium tremors. This appears to be improved significantly. 09/17/2016. This patient was extubated on 09/16/2016. Today's x-ray shows increased markings in the left upper lung left lower lung and to a lesser extent in the right lower lung. She is growing staph aureus and Klebsiella from her rhonchi 3 specimens. Today's x-ray looks like she may be trying to develop mild pulmonary edema. I will check a BNP and if this is grossly elevated we may gently diurese her. ABGs on FiO2 28% shows a pH 7.47, PCO2 is 41, PO2 is 97, bicarb is 29.7. Potassium is low at 3.3 and is being replaced. White count is 13,600 with 83 segs. H&H is 10.5/32.2. Platelets of 300,000. 09/18/2016. This patient was extubated on 09/16/2016. She has done fairly well from a pulmonary standpoint. Her chest x-ray shows hyperinflation and generalized increased interstitial markings. Left watch her closely for congestive heart failure. ABGs on FiO2 of 36% showed pH 7.447, PCO2 47.4, PO2 is 67.8 and a bicarb of 32. Natruretic peptide is normal at 103. Electrolytes normal. Creatinine is 0.40. BUN is 5. CBC is stable. Bronchoscopy specimens have grown Klebsiella and Staphylococcus aureus. These are being treated with the appropriate antibiotics. 09/19/2016. This patient was extubated on 09/16/2016. She is doing very well from a pulmonary standpoint since that time. Today's chest x-ray shows faint increased markings in the left lower lung. She should be discharged home in approximately 1 more week of oral antibiotics. Note, sputum and bronchoscopy specimens grew Klebsiella oxytoca. Sputum also grew Staphylococcus aureus. ABGs on an FIO2 of 28% showed a pH of 7.414, PCO2 of 45.8, PO2 of 63.4, Bicarb of 28.1, and O2 sat 92.9%. Medications have been reviewed. We made no changes today. Labs have been reviewed. White count is 12,000 with 72.6% segs; H&H 10.2/32.5; PLT count 375,000; creatinine 0.50, BUN 8, NA+ 145, K+ 4.7; BNP 187 Exam (Progress Note) - Constitutional Vitals: Period Temp Pulse Resp BP Sys/Briones Pulse Ox Last 24 Hr 97.4 F-99.1 F 59-97 12-24 94-135/52-96 89-98 Exam: Chest is fairly clear Heart no gallop Abd is nontender and nondistended; BS postivie x 4 Ext with nothing to suggest acute DVT Pscyh oriented x 3 Neuro long tract motor function is intact Plan: She is stable from a pulmonary standpoint. Your plans for discharge are noted. We will sign off. Please reconsult PRN. Results - Labs CBC & BMP: 09/19/16 05:02 09/19/16 05:02 Specialty Discharge - Follow Up or Referrals
[2016-09-19 12:20] VITALS: BP 131/80
--- NOTE | 2016-09-20 08:39 | Ultrasound Report ---
US liver Indication: Abnormal CT liver. CT images not provided. ULTRASOUND ABDOMEN, limited Comparison: None Findings: Liver: No mass, cyst or calcification. Normal size. Smooth contour. Minimal increased echotexture throughout. Gallbladder: Contracted, patient not n.p.o. No stones identified. Common bile duct: 3 mm Pancreas: Unremarkable Right kidney: 10.2 cm length. No mass, cyst, calcification or obstruction Impression: Minimally increased echotexture of the liver, likely hepatic steatosis. Contracted gallbladder. PROCEDURE INTERPRETED AT [facility] DEPARTMENT OF RADIOLOGY Final Report Signed by: Maximiliano De Leon M.D.
== END 2016-09-19 12:15 | disposition home or self-care (01) | DRG 987 ==
LOC: EDBD → EDUNIT# → N.ED 18:40 → N.EDINP 21:10 → N.CC 21:50
PROVIDERS: ADMIT Internal Medicine; ATTEND Internal Medicine